=== PATIENT | male | born 1965 | race Caucasian/White ===

== ENCOUNTER → 2019-07-27 | Outpatient (CLI) | payer OTHER ==
[2019-07-27 16:03] LABS: FREE T4 (FREE THYROXINE) 0.97 NG/DL (0.70-1.48)
== END ==
LOC: LAB FS 10:19
PROVIDERS: ATTEND Family Medicine
DX: Z12.5 Encounter for screening for malignant neoplasm of prostate (principal); R00.2 Palpitations
CPT/HCPCS: 36415; 84153; 84439; 84443

== ENCOUNTER → 2019-08-18 | Outpatient (CLI) | payer OTHER ==
[~2019-08-18] MED LIST: ACET-2267 PO; ALBU18HF2 PO; ALBU2.5V4 NEB; BENZ-36 PO; EMPA10TA PO; IBUP-2473 PO; INSU100I14 SC; INSU200I4 SC; INSU300I; LEVO750T39 PO; LISI-556 PO; PROM5SYR PO; SITA1TBM4 PO; TIMO5DRO27; TIMO5DRO5 OU
--- NOTE | 2019-08-18 10:30 | Diagnostic Imaging Report ---
INDICATION: Fever, cough and shortness of breath. Time of exam 10:00 a.m. No prior studies are available for comparison. The heart is enlarged. There are patchy bilateral pulmonary infiltrates in the mid and lower lung mcfadden. No effusion is identified. Upper lung mcfadden are clear. IMPRESSION: Patchy bilateral pulmonary infiltrates consistent with pneumonia. Dictated by: Dictated on workstation # [id number]
== END ==
LOC: RAD FS 09:14
PROVIDERS: ATTEND Family Medicine
DX: R06.02 Shortness of breath (principal); R05 Cough; R50.9 Fever, unspecified
CPT/HCPCS: 36415; 71046; 87635

== ENCOUNTER 2019-08-19 09:00 | Inpatient (IN) | payer OTHER ==
[2019-08-19] VITALS (12 sets, daily range): BP systolic 117–150; BP diastolic 70–82
[~2019-08-19] VITALS: Ht 183 cm; Wt 98.7 kg
--- OUTSIDE RECORDS SUMMARY | 2019-08-19 09:11 | XMS REPORT | Continuity of Care Document ---
Author Organization Unknown Address Unknown Phone Unavailable Allergies There is no data. Medications There is no data. Problems Date Dx Coded Attending Type Code Diagnosis Diagnosed By 08/18/2019 YARY VALDEZ MD Ot R00 .2 PALPITATIONS 08/18/2019 YARY VALDEZ MD Ot Z12 .5 ENCOUNTER FOR SCREENING FOR MALIGNANT NE Procedures There is no data. Results Test Result Range TSH - 03/04/19 07:59 TSH 6.17 mIU/L 0.40-4.50 A1C - 03/04/19 07:59 HEMOGLOBIN A1c 8.2 % of total Hgb <5.7 THYROID STIMULATING HORMONE - 07/27/19 1 0:30 THYROID STIMULATING HORMONE 2.27 u[iU]/mL 0.35-4.94 Serum or plasma thyroxine (T4) free madisyn urement (mass/volume) - 07/27/19 10:30 Serum or plasma thyroxine (T4) free measurement (mass/ volume) 0.97 ng/dL 0.70-1.48 Semen free prostate specific antigen (PS A) measurement (units/volume) - 07/27/19 10:30 PSA EQUIMOLAR (JONNY) 0.24 % 0.00-4.0 0 Encounters ACCT No. Visit Date/Time Discharge Status Pt. Type Provider Facility Loc./Unit Complaint [id number] 06/08/2019 12:10:00 06/08/2019 23:59: 59 CLS Outpatient [facility] [id number] 03/04/2019 08:00:00 Document Registration [id number] 07/27/2019 10:19:00 020 23:59:59 CLS Outpatient YARY VALDEZ MD [facility] LAB FS R00.2 Z12.5 [id number] 08/18/2019 09:14:[address] Outpatient YARY VALDEZ MD [facility] RAD FS R05
[2019-08-19] MEDS ORDERED: PROM5SYR PO (09:25)
[2019-08-19] MEDS ORDERED: INSU100I14 SC (09:25)
[2019-08-19] MEDS ORDERED: SITA1TBM4 PO (09:25)
[2019-08-19] MEDS ORDERED: ALBU2.5V4 NEB (09:25)
[2019-08-19] MEDS ORDERED: BENZ-36 PO (09:25)
[2019-08-19] MEDS ORDERED: INSU300I (09:25)
[2019-08-19] MEDS ORDERED: LISI-556 PO (09:25)
[2019-08-19] MEDS ORDERED: LEVO750T39 PO (09:25)
[2019-08-19] MEDS ORDERED: EMPA10TA PO (09:25)
[2019-08-19] MEDS ORDERED: TIMO5DRO27 (09:25)
--- NOTE | 2019-08-19 09:35 | ED Respiratory ---
General Chief Complaint: Respiratory Problems Stated Complaint: COUGH Nursing Triage Note: Patient reports having fever, severe cough and soa, and inability to take in a deep breath. Patient states he recently traveled to [facility] on August 02. On the way there he traveled from the airports in [place] to [place](for 4 hours), to [place] (for 8 hours, took taxi to [facility], [place]), to [facility]. He went to [facility] during the trip. ON the he left and flew to [facility] with an 8 hour layover then to [facility] for 3 hours, then to [place]. Patient reports the highest his fever has been is 101.6 degrees. Patient reports that he has lost 7 pounds in the 2 weeks Source: patient Exam Limitations: clinical condition History of Present Illness Date Seen by Provider: Aug 19, 2019 Time Seen by Provider: 09:20 Initial Comments The patient is a 54-year-old male who presents for evaluation of fever, cough, and shortness of breath over the last 5-6 days. The patient recently traveled to [facility] on August 02. He states that on the way there he visited airports in [place], [place], [place], and [place]. They left [facility] on August 12 and flew through [facility] and [place] on the way back home. He says he is having difficulty taking a deep breath and has pain in his back. He has had a fever of 101.6 at home. He was seen here in the emergency department and was swabs for COVID-19 in his test results are being run today but has not yet resulted. His chest x-ray yesterday showed diffuse infiltrates. None of the other people he traveled with are having symptoms but they are all currently self-quarantining. He used an albuterol inhaler at home which helped slightly. Timing/Duration: getting worse, other (5-6 days) Severity: moderate Prior Episodes/Possible Cause: no prior episodes Modifying Factors: Improves With Albuterol Inhaler (helped a little) Associated Symptoms: cough, fever/chills, shortness of breath Allergies and Home Medications Allergies Coded Allergies: cefazolin (Verified Allergy, Unknown, 08/19/19) droperidol (Verified Allergy, Unknown, 08/19/19) morphine (Verified Allergy, Unknown, 08/19/19) hypotension nalbuphine (Verified Allergy, Unknown, 08/19/19) Patient Home Medication List Home Medication List Reviewed: Yes Review of Systems Review of Systems Constitutional: chills, fever, malaise EENTM: no symptoms reported Respiratory: cough, short of breath Cardiovascular: no symptoms reported Gastrointestinal: no symptoms reported Genitourinary: no symptoms reported Musculoskeletal: no symptoms reported Skin: no symptoms reported Psychiatric/Neurological: No Symptoms Reported Hematologic/Lymphatic: No Symptoms Reported Immunological/Allergic: no symptoms reported All Other Systems Reviewed Negative Unless Noted: Yes Past Zsxouhw-Dvuuab-Cztaqx Hx Past Med/Social Hx: Reviewed Nursing Past Med/Soc Hx Patient Social History Alcohol Use: Denies Use Recreational Drug Use: No Recent Foreign Travel: No Contact w/Someone Who Travel: No Recent Infectious Disease Expo: No Past Medical History Surgeries: Yes (R & L rotator cuff) Orthopedic Respiratory: No Cardiac: Yes Hypertension Neurological: No Genitourinary: No Gastrointestinal: No Musculoskeletal: No Endocrine: Yes Diabetes, Insulin dep HEENT: No Cancer: No Integumentary: No Physical Exam Vital Signs - First Documented 08/19/19 08/19/19 09:10 10:19 Temp 37.2 Pulse 63 Resp 22 B/P (MAP) 151/86 (107) Pulse Ox 97 O2 Delivery Room Air O2 Flow Rate 2.00 Capillary Refill : Less Than 3 Seconds Height: '" Weight: lbs. oz. kg; 28.00 BMI Method: General Appearance: WD/WN Eyes: Bilateral Eye Normal Inspection, Bilateral Eye PERRL, Bilateral Eye EOMI HEENT: PERRL/EOMI, normal ENT inspection Neck: non-tender, full range of motion, supple, normal inspection Respiratory: chest non-tender, normal breath sounds, no accessory muscle use, respiratory distress (mild resp distress), decreased breath sounds, rhonchi Cardiovascular: regular rate, rhythm, no edema Gastrointestinal: normal bowel sounds, non tender, soft Extremities: normal range of motion, non-tender, no pedal edema Neurologic/Psychiatric: security supervisor II-XII nml as tested, no motor/sensory deficits, alert, normal mood/affect, oriented x 3 Skin: normal color, warm/dry Focused Exam Lactate Level 08/19/19 09:35: Lactic Acid Level 1.01 Lactic Acid Level Laboratory Tests Test 08/19/19 09:35 Lactic Acid Level 1.01 MMOL/L (0.50-2.00) Progress/Results/Core Measures Suspected Sepsis Recent Fever Within 48 Hours: Yes Infection Criteria Present: Documented Infection New/Unexplained Altered Menta: No Sepsis Screen: Possible Severe Sepsis Risk SIRS Temperature: Pulse: 63 Respiratory Rate: 22 Laboratory Tests 08/19/19 09:35: White Blood Count 6.0 Blood Pressure 151 /86 Mean: 107 08/19/19 09:35: Lactic Acid Level 1.01 Laboratory Tests 08/19/19 09:35: Creatinine 0.65, Platelet Count 174, Total Bilirubin 0.3 Results/Orders Lab Results Laboratory Tests Test 08/19/19 09:35 08/19/19 10:10 Range/Units White Blood Count 6.0 4.3-11.0 10^3/uL Red Blood Count 5.47 4.35-5.85 10^6/uL Hemoglobin 14.9 13.3-17.7 G/DL Hematocrit 44 40-54 % Mean Corpuscular Volume 81 80-99 FL Mean Corpuscular Hemoglobin 27 25-34 PG Mean Corpuscular Hemoglobin Concent 34 32-36 G/DL Red Cell Distribution Width 13.9 10.0-14.5 % Platelet Count 174 130-400 10^3/uL Mean Platelet Volume 10.1 7.4-10.4 FL Neutrophils (%) (Auto) 59 42-75 % Lymphocytes (%) (Auto) 34 12-44 % Monocytes (%) (Auto) 6 0-12 % Eosinophils (%) (Auto) 1 0-10 % Basophils (%) (Auto) 0 0-10 % Neutrophils # (Auto) 3.6 1.8-7.8 X 10^3 Lymphocytes # (Auto) 2.1 1.0-4.0 X 10^3 Monocytes # (Auto) 0.4 0.0-1.0 X 10^3 Eosinophils # (Auto) 0.0 0.0-0.3 10^3/uL Basophils # (Auto) 0.0 0.0-0.1 10^3/uL Sodium Level 138 135-145 MMOL/L Potassium Level 4.6 3.6-5.0 MMOL/L Chloride Level 101 98-107 MMOL/L Carbon Dioxide Level 21 21-32 MMOL/L Anion Gap 16 H 5-14 MMOL/L Blood Urea Nitrogen 12 7-18 MG/DL Creatinine 0.65 0.60-1.30 MG/DL Estimat Glomerular Filtration Rate > 60 BUN/Creatinine Ratio 18 Glucose Level 101 70-105 MG/DL Lactic Acid Level 1.01 0.50-2.00 MMOL/L Calcium Level 9.2 8.5-10.1 MG/DL Corrected Calcium 9.4 8.5-10.1 MG/DL Total Bilirubin 0.3 0.1-1.0 MG/DL Aspartate Amino Transf (AST/SGOT) 51 H 5-34 U/L Alanine Aminotransferase (ALT/SGPT) 36 0-55 U/L Alkaline Phosphatase 52 40-136 U/L Total Protein 7.5 6.4-8.2 GM/DL Albumin 3.8 3.2-4.5 GM/DL My Orders Orders - JUSTICE PATTERSON DO Cbc With Automated Diff (08/19/19 09:08) Comprehensive Metabolic Panel (08/19/19 09:08) Ed Iv/Invasive Line Start (08/19/19 09:08) Chest 1 View Ap/Pa Only (08/19/19 09:08) Blood Culture (08/19/19 09:08) Lactic Acid Analyzer (08/19/19 09:08) Project Drilling Engineer (08/19/19 09:08) Continuous Pulse Ox (08/19/19 09:08) Levofloxacin 750 Mg/150 Ml Iv (Levaquin (08/19/19 10:00) Blood Culture (08/19/19 09:45) Arterial Blood Gas (08/19/19 10:14) Erythrocyte Sedimentation Rate (08/19/19 10:27) Medications Given in ED Current Medications Medications Dose Ordered Sig/Roxana Route Start Time Stop Time Status Last Admin Dose Admin Levofloxacin/ Dextrose 150 ml @ 100 mls/hr ONCE ONCE IV 08/19/19 10:00 08/19/19 11:29 08/19/19 10:14 100 MLS/HR Vital Signs/I&O 08/19/19 08/19/19 09:10 10:19 Temp 37.2 Pulse 63 61 Resp 22 24 B/P (MAP) 151/86 (107) 147/73 (97) Pulse Ox 97 99 O2 Delivery Room Air OxyMask O2 Flow Rate 2.00 Capillary Refill : Less Than 3 Seconds Blood Pressure Mean: 107 Progress Note : Progress Note @1030 - patient updated on lab and imaging results. He is agreeable to admission. Dr. Gama accepts the admission to an ICU bed at [facility]. Diagnostic Imaging Diagonstic Imaging: Xray Comments [facility], [place], [place] NAME: PIYUSH [facility]USSEIN [facility] REC#: [id number] PT STATUS: REG ER : 1965 PHYSICIAN: JUSTICE PATTERSON DO ADMIT DATE: 08/19/19/ER FS Draft Date of Exam:08/19/19 CHEST 1 VIEW AP/PA ONLY INDICATION: Cough and fever with dyspnea. AP view of the chest is obtained with comparison made to study of one day earlier. Overall heart size remains within normal limits. There is suboptimal inspiration which does lead to perihilar atelectasis. The predominantly peripheral airspace disease in the lower two thirds of the left lung and the focal airspace disease in the central right lung have not significantly changed. No pneumothorax or new infiltrate is identified. IMPRESSION: Bilateral focal airspace opacities remain compatible with pneumonia. There has been no significant change. Dictated on workstation # [id number] Dict: 08/19/19 0940 Trans: 08/19/19 0944 [facility] [id number] Interpreted by: LAURIE TOM MD Electronically signed by: Departure Communication (Admissions) Time/Spoke to Admitting Phy: 10:35 Dr. Gama accepts the ICU admission at [facility] Impression Primary Impression: Acute respiratory distress Additional Impressions: Bilateral pneumonia Foreign travel within last 10 days Disposition: ADMITTED INPATIENT Condition: Stable Admissions Decision to Admit Reason: Admit from ER (General) Decision to Admit/Date: Aug 19, 2019 Time/Decision to Admit Time: 10:40 Departure-Patient Inst. Referrals: YARY VALDEZ MD (PCP/Family) Primary Care Physician JUSTICE PATTERSON DO Aug 19, 2019 09:35
--- NOTE | 2019-08-19 09:44 | Diagnostic Imaging Report ---
INDICATION: Cough and fever with dyspnea. AP view of the chest is obtained with comparison made to study of one day earlier. Overall heart size remains within normal limits. There is suboptimal inspiration which does lead to perihilar atelectasis. The predominantly peripheral airspace disease in the lower two thirds of the left lung and the focal airspace disease in the central right lung have not significantly changed. No pneumothorax or new infiltrate is identified. IMPRESSION: Bilateral focal airspace opacities remain compatible with pneumonia. There has been no significant change. Dictated by: Dictated on workstation # [id number]
[2019-08-19 09:47] LABS: HEMATOCRIT 44 % (40-54); HEMOGLOBIN 14.9 G/DL (13.3-17.7); LYMPHOCYTES % (AUTO) 34 % (12-44); MEAN CORPUSCULAR HEMOGLOBIN 27 PG (25-34); MEAN CORPUSCULAR HGB CONC 34 G/DL (32-36); MEAN CORPUSCULAR VOLUME 81 FL (80-99); MEAN PLATELET VOLUME 10.1 FL (7.4-10.4); MONOCYTES % (AUTO) 6 % (0-12); NEUTROPHILS % (AUTO) 59 % (42-75); PLATELET COUNT 174 10^3/uL (130-400); RED CELL DISTRIBUTION WIDTH 13.9 % (10.0-14.5)
[2019-08-19 09:48] LABS: BASOPHILS % (AUTO) 0 % (0-10); EOSINOPHILS % (AUTO) 1 % (0-10); LYMPHOCYTES # (AUTO) 2.1 X 10^3 (1.0-4.0); MONOCYTES # (AUTO) 0.4 X 10^3 (0.0-1.0); NEUTROPHILS # (AUTO) 3.6 X 10^3 (1.8-7.8)
[2019-08-19] MEDS ORDERED: LEVOFLOXACIN 750 MG/150 ML IV 150 ML IV ONE (10:00)
[2019-08-19 10:07] LABS: CHLORIDE 101 MMOL/L (98-107); POTASSIUM 4.6 MMOL/L (3.6-5.0); SODIUM 138 MMOL/L (135-145)
[2019-08-19 10:08] LABS: ALANINE AMINOTRANSFERASE 36 U/L (0-55); ALKALINE PHOSPHATASE 52 U/L (40-136); BILIRUBIN,TOTAL 0.3 MG/DL (0.1-1.0); BUN/CREATININE RATIO 18; CALCIUM 9.2 MG/DL (8.5-10.1); CARBON DIOXIDE 21 MMOL/L (21-32); CREATININE SERUM 0.65 MG/DL (0.60-1.30); GFR ESTIMATED > 60; GLUCOSE 101 MG/DL (70-105); TOTAL PROTEIN 7.5 GM/DL (6.4-8.2)
[2019-08-19 10:09] LABS: ALBUMIN 3.8 GM/DL (3.2-4.5)
[2019-08-19 11:18] LABS: ABG BASE EXCESS -1.8 MMOL/L (-2.5-2.5); ABG OXYGEN SATURATION 97 % (94-100); ABG PCO2 33 MMHG (35-45); ABG PH 7.43 (7.37-7.43); ABG PO2 89 MMHG (79-93); ABG TCO2 22.9 MMOL/L (21.0-31.0)
[2019-08-19 11:19] LABS: ALLENS TEST OK; INSPIRED O2 4L; VENTILATOR NO
--- OUTSIDE RECORDS SUMMARY | 2019-08-19 13:50 | XMS REPORT | Continuity of Care Document ---
[...] PSA EQUIMOLAR (JONNY) 0.24 % 0.00-4.0 0 Complete blood count (CBC) with automate d white blood cell (WBC) differential - 08/19/19 09:35 Blood leukocytes automated count (number/volume) 6.0 10*3/uL 4.3-11.0 Blood erythrocytes automated count (number/volume) 5.47 10*6/uL 4.35-5.85 Venous blood hemoglobin measurement (mass/volume) 14.9 g/dL 13.3-17.7 Blood hematocrit (volume fraction) 44 % 40-54 Automated erythrocyte mean corpuscular volume 81 [ foz_us] 80-99 Automated erythrocyte mean corpuscular h emoglobin (mass per erythrocyte) 27 pg 25-34 Automated erythrocyte mean corpuscular h emoglobin concentration measurement (mass/volume) 34 g/dL 32-36 Automated erythrocyte distribution width ratio 13. 9 % 10.0- 14.5 Automated blood platelet count (count/volume) 174 10*3/uL 130-400 Automated blood platelet mean volume measurement 10.1 [foz_us] 7.4-10.4 Automated blood neutrophils/100 leukocytes 59 % 42-75 Automated blood lymphocytes/100 leukocytes 34 % 12-44 Blood monocytes/100 leukocytes 6 % 0-12 Automated blood eosinophils/100 leukocytes 1 % 0-10 Automated blood basophils/100 leukocytes 0 % 0-10 Blood neutrophils automated count (number/volume) 3.6 10*3 1.8-7.8 Blood lymphocytes automated count (number/volume) 2.1 10*3 1.0-4.0 Blood monocytes automated count (number/volume) 0. 4 10*3 0.0-1.0 Automated eosinophil count 0.0 10*3/uL 0 .0-0.3 Automated blood basophil count (count/volume) 0.0 10*3/uL 0.0-0.1 Blood lactic acid measurement (moles/vol ume) - 08/19/19 09:35 Blood lactic acid measurement (moles/volume) 1.01 mmol/L 0.50-2.00 Comprehensive metabolic panel - 08/19/19 09:35 Serum or plasma sodium measurement (moles/volume) 138 mmol/L 135-145 Serum or plasma potassium measurement (moles/volume) 4.6 mmol/L 3.6-5.0 Serum or plasma chloride measurement (moles/volume) 101 mmol/L 98-107 Carbon dioxide 21 mmol/L 21-32 Serum or plasma anion gap determination (moles/volume) 16 mmol/L 5-14 Serum or plasma urea nitrogen measurement (mass/volume ) 12 mg/dL 7-18 Serum or plasma creatinine measurement (mass/volume) 0.65 mg/dL 0.60-1.30 Serum or plasma urea nitrogen/creatinine mass ratio 18 NRG Serum or plasma creatinine measurement w ith calculation of estimated glomerular filtration rate > NRG Serum or plasma glucose measurement (mass/volume) 101 mg/dL 70-105 Serum or plasma calcium measurement (mass/volume) 9.2 mg/dL 8.5-10.1 Serum or plasma total bilirubin measurement (mass/volu me) 0.3 mg/dL 0.1-1.0 Serum or plasma alkaline phosphatase ernesto surement (enzymatic activity/volume) 52 U/L 40-136 Serum or plasma aspartate aminotransfera se measurement (enzymatic activity/volume) 51 U/L 5-34 Serum or plasma alanine aminotransferase measurement (enzymatic activity/volume) 36 U/L 0-55 Serum or plasma protein measurement (mass/volume) 7.5 g/dL 6.4-8.2 Serum or plasma albumin measurement (mass/volume) 3.8 g/dL 3.2-4.5 CALCIUM CORRECTED 9.4 mg/dL 8.5-10.1 Erythrocyte sedimentation rate by mindy gren method - 08/19/19 09:35 Erythrocyte sedimentation rate by westergren method 39 mm 0- 30 Arterial blood gas measurement - 0 11:10 Blood pCO2 33 mm[Hg] 35-45 Blood pO2 89 mm[Hg] 79-93 Arterial blood bicarbonate measurement (moles/volume) 22 mmol/L 23-27 Arterial blood base excess by calculation -1.8 mmo l/L -2.5-2.5 Arterial blood oxygen saturation measurement 97 % 94-100 * Inhaled oxygen flow rate 4L NRG Arterial blood pH measurement with patient temperature correction 7.43 7.37-7.43 Arterial blood carbon dioxide, total measurement (mole s/volume) 22.9 mmol/L 21.0-31.0 Body site RT RADIAL NRG Assessment of wrist artery patency prior to arterial p uncture OK NRG Setting of ventilation mode NO NR G Measurement of body temperature 99.0 NRG Encounters ACCT No. Visit Date/Time Discharge Status Pt. Type Provider Facility Loc./Unit Complaint [id number] 06/08/2019 12:10:00 06/08/2019 23:59: 59 CLS Outpatient YARY VALDEZ [facility] [id number] 03/04/2019 08:00:00 Document Registration [id number] 07/27/2019 10:19:00 020 23:59:59 CLS Outpatient YARY VALDEZ MD [facility] LAB FS R00.2 Z12.5 [id number] 08/19/2019 09:49:00 Document Registration [id number] 08/18/2019 09:14:[address] Outpatient YARY VALDEZ MD [facility] RAD FS R08
[2019-08-19] MEDS ORDERED: ONDANSETRON 4 MG/2 ML (SDV) Z0FRAN IV PRN (14:00)
[2019-08-19] MEDS ORDERED: ANTACID SUSP 30 ML UDC (MYLANTA) PO PRN (14:00)
[2019-08-19] MEDS ORDERED: polyethylene glycoL POWDER 17 GM (MIRALAX) PACK PO PRN (14:00)
[2019-08-19] MEDS ORDERED: MELATONIN 3 MG TABLET PO PRN (14:00)
--- NOTE | 2019-08-19 14:19 | History & Physical-Hospitalist ---
History of Present Illness HPI/Chief Complaint Pt is a 54yoCM with a PMH IDDMII, HTN, and chronotropic incompetence presented to the ER due to SOB, cough, and fever after travel to multiple foreign countries. He recently was on a medical mission trip in [place]. On August 02. He states that on the way there he visited airports in [place], [place], [place], and [place]. They left [facility] on August 12 and flew through [facility] and [place] on the way back home. He developed a fever this Friday on 08/14. Yesterday he called his PCP regarding his symptoms and COVID testing as down. CXR was also done which revealed bilateral pneumonia. He was started on Levaquin. Despite this he continued to worsen and called his doctor who recommended evaluation in the ER. CXR today shows similar but he had a new oxygen requirement and was quite tachypneic. He is being admitted for acute respiratory distress and COVID testing is pending at the time of my exam. As a precaution airborne, contact, and droplet isolation PPE were worn during my interview. Source: patient Date Seen 08/19/19 Time Seen by a Provider: 14:14 Attending Physician Zaira Connelly MD PCP Leandra Dunaway MD Referring Physician Date of Admission Aug 19, 2019 at 11:26 Home Medications & Allergies Home Medications Reviewed patient Home Medication Reconciliation performed by pharmacy medication reconciliations household appliances service technician and/or nursing. Patients Allergies have been reviewed. Allergies Allergies Coded Allergies cefazolin (Verified Allergy, Unknown, 08/19/19) droperidol (Verified Allergy, Unknown, 08/19/19) morphine (Verified Allergy, Unknown, 08/19/19) hypotension nalbuphine (Verified Allergy, Unknown, 08/19/19) Past Zpzoorv-Bkbjfw-Zvtqxx Hx Past Med/Social Hx: Reviewed Nursing Past Med/Soc Hx Patient Social History Marrital Status: Employed/Student: employed Alcohol Use: Denies Use Recreational Drug Use: No Smoking Status: Never a Smoker Recent Foreign Travel: No Contact w/other who traveled: No Recent Infectious Disease Expo: No Immunizations Up To Date Date of Pneumonia Vaccine: Mar 26, 2019 Date of Influenza Vaccine: Feb 23, 2019 Past Medical History Surgeries: Orthopedic Cardiac: Hypertension Endocrine: Diabetes, Insulin dep Family History Reviewed Nursing Family Hx Review of Systems Constitutional: chills, fever, malaise EENTM: no symptoms reported Respiratory: cough, dyspnea on exertion, short of breath Cardiovascular: No chest pain, No palpitations Gastrointestinal: no symptoms reported Genitourinary: no symptoms reported Musculoskeletal: no symptoms reported Skin: no symptoms reported Psychiatric/Neurological: No Symptoms Reported Physical Exam Physical Exam Vital Signs Vital Signs - First Documented 08/19/19 08/19/19 08/19/19 09:10 10:19 17:22 Temp 37.2 Pulse 63 Resp 22 B/P (MAP) 151/86 (107) Pulse Ox 97 O2 Delivery Room Air O2 Flow Rate 2.00 FiO2 40 Capillary Refill : Less Than 3 Seconds Height, Weight, BMI Height: '" Weight: lbs. oz. kg; 28.00 BMI Method: General Appearance: WD/WN, Mild Distress (ill appearing, fatigued) HEENT: PERRL/EOMI; No Scleral Icterus (L), No Scleral Icterus (R); Other (obscured somewhat by oxi-mask in place) Neck: Normal Inspection, Supple Respiratory: Crackles, Other (tachypnea noted) Cardiovascular: Regular Rate, Rhythm, No Murmur Gastrointestinal: Normal Bowel Sounds, Non Tender, Soft Extremity: Normal Capillary Refill, No Calf Tenderness Neurologic/Psychiatric: Alert, Oriented x3, Normal Mood/Affect Results Results/Procedures Labs Laboratory Tests 08/19/19 09:35 Patient resulted labs reviewed. Imaging: Reviewed Imaging Report Imaging Date of Exam:08/19/19 CHEST 1 VIEW AP/PA ONLY INDICATION: Cough and fever with dyspnea. AP view of the chest is obtained with comparison made to study of one day earlier. Overall heart size remains within normal limits. There is suboptimal inspiration which does lead to perihilar atelectasis. The predominantly peripheral airspace disease in the lower two thirds of the left lung and the focal airspace disease in the central right lung have not significantly changed. No pneumothorax or new infiltrate is identified. IMPRESSION: Bilateral focal airspace opacities remain compatible with pneumonia. There has been no significant change. Assessment/Plan Admission Diagnosis Acute Respiratory Distress Admission Status: Inpatient Order (span 2 midnights) Reason for Inpatient Admission: on oxygen, failed outpatient management Assessment and Plan Acute Respiratory Distress COVID19 Bilateral pneumonia Shortly after examining pt I received called that testing for Sars-Cov2 PCR is positive Maintain in airborne, contact, droplet isolation Will obtain further labs (CRP, procalcitonin, ferritin, CRP, d-dimer, LDH) EKG to check QTC Hydroxychloroquine and Azithromycin started I spoke with [facility] regarding patient, appreciate their assistance in management IDDMII Normally takes Tresiba but has not taken for 3 days, reports fasting BS this AM was 97 SSI only for now HTN Currently well controlled, will trend Diagnosis/Problems Diagnosis/Problems (1) SARS-associated coronavirus infection Permanent Comment: COVID19 + Last Edited By: Zaira Connelly on Aug 19, 2019 21:04 (2) Essential (primary) hypertension (3) Insulin dependent diabetes mellitus (4) Acute respiratory distress Status: Acute (5) Foreign travel within last 10 days Status: Acute (6) Bilateral pneumonia Status: Acute Clinical Quality Measures DVT/VTE Risk/Contraindication: Risk Factor Score Per Nursin RFS Level Per Nursing on Admit: 2=Moderate ZAIRA CONNELLY MD Aug 19, 2019 14:19
[2019-08-19] MEDS: AZITHROMYCIN INJECTION 500 MG in NS (IVPB) 250 ML IV SCH (15:35)
[2019-08-19] MEDS: inSUlin ASPART (NovoLOG) 1 UNIT/0.01 ML (CHARGE PER UNIT) SC SCH ×2 (15:35→21:01)
[2019-08-19] MEDS: HYDROXYCHLOROQUINE 200 MG (PLAQUENIL) TAB PO SCH (15:36)
--- NOTE | 2019-08-19 16:40 | NUR ---
THIS NURSE NOTIFIED DR CONNELLY PT IS SOA AND GRUNTING. PT OXYGEN SATURATIONS ARE 96-98%. PT STATES HE FEELS LIKE HE IS HAVING A HARD TIME BREATHING. DR CONNELLY ORDERED TO NOTIFY E-ICU.
--- NOTE | 2019-08-19 16:43 | NUR ---
THIS NURSE NOTIFIED DR CLARK THAT PT IS SOA AND GRUNTING. PT OXYGEN SATURATIONS ARE 96-98%. PT STATES HE IS HAVING A HARD TIME BREATHING. DR CALRK SAID SHE WILL ORDER A PRN INHALER AND TO MONITOR FOR NOW SINCE PT OXYGEN SATURATIONS ARE NORMAL.
--- NOTE | 2019-08-19 16:53 | NUR ---
DR CLARK NOTIFIED PT IS HAVING DIFFICULTY COUGHING WELL SOA. DR CLARK DOES NO BELIEVE VAPOTHERM WILL HELP PT SINCE OXYGEN SATURATIONS ARE IN HIGH 90S. WILL CONTINUE TO MONITOR. SEE ORDER HX.
[2019-08-19] MEDS: RT-ALBUTEROL HFA (PROAIR HFA) 8.5 GM IH PRN (17:22)
[2019-08-19] MEDS: guaiFENesin/DM (ROBITUSSIN DM) 10 ML UDC PO PRN (18:08)
[2019-08-20] VITALS (24 sets, daily range): BP systolic 109–156; BP diastolic 67–92
[2019-08-20] MEDS: RT-ALBUTEROL HFA (PROAIR HFA) 8.5 GM IH PRN ×2 (00:10→17:23)
[2019-08-20] MEDS: HYDROXYCHLOROQUINE 200 MG (PLAQUENIL) TAB PO SCH ×2 (03:20→21:28)
[2019-08-20] MEDS: ACETAMINOPHEN 325 MG TABLET PO PRN ×2 (03:32→11:15)
[2019-08-20 03:50] LABS: BASOPHILS % (AUTO) 0 % (0-10); EOSINOPHILS % (AUTO) 1 % (0-10); HEMATOCRIT 40 % (40-54); HEMOGLOBIN 13.9 G/DL (13.3-17.7); LYMPHOCYTES # (AUTO) 1.9 X 10^3 (1.0-4.0); LYMPHOCYTES % (AUTO) 38 % (12-44); MEAN CORPUSCULAR HEMOGLOBIN 28 PG (25-34); MEAN CORPUSCULAR HGB CONC 35 G/DL (32-36); MEAN CORPUSCULAR VOLUME 80 FL (80-99); MONOCYTES # (AUTO) 0.4 X 10^3 (0.0-1.0); MONOCYTES % (AUTO) 8 % (0-12); NEUTROPHILS # (AUTO) 2.6 X 10^3 (1.8-7.8); NEUTROPHILS % (AUTO) 53 % (42-75); PLATELET COUNT 164 10^3/uL (130-400); RED CELL DISTRIBUTION WIDTH 14.7 % (10.0-14.5)
[2019-08-20 04:10] LABS: ALANINE AMINOTRANSFERASE 38 U/L (0-55); ALBUMIN 3.8 GM/DL (3.2-4.5); ALKALINE PHOSPHATASE 48 U/L (40-136); BILIRUBIN,TOTAL 0.3 MG/DL (0.1-1.0); BUN/CREATININE RATIO 13; CALCIUM 8.8 MG/DL (8.5-10.1); CARBON DIOXIDE 21 MMOL/L (21-32); CHLORIDE 104 MMOL/L (98-107); CREATININE SERUM 0.82 MG/DL (0.60-1.30); GFR ESTIMATED > 60; GLUCOSE 105 MG/DL (70-105); MAGNESIUM 1.9 MG/DL (1.6-2.4); PHOSPHORUS 3.5 MG/DL (2.3-4.7); POTASSIUM 4.1 MMOL/L (3.6-5.0); SODIUM 138 MMOL/L (135-145); TOTAL PROTEIN 6.8 GM/DL (6.4-8.2)
[2019-08-20 04:12] LABS: PROTHROMBIN TIME PATIENT 13.6 SEC (12.2-14.7)
[2019-08-20] MEDS: POTASSIUM CL 10MEQ/50ML IVPB 50 ML IV SCH (06:47)
[2019-08-20] MEDS: MAGNESIUM 1 GM/100 ML IVPB 100 ML IV SCH (06:47)
[2019-08-20] MEDS: KCL 20 MEQ TAB (K-DUR) PO SCH (06:47)
[2019-08-20] MEDS: inSUlin ASPART (NovoLOG) 1 UNIT/0.01 ML (CHARGE PER UNIT) SC SCH ×4 (06:48→21:28)
--- NOTE | 2019-08-20 07:13 | Diagnostic Imaging Report ---
INDICATION: Pneumonia. Comparison made with prior examination of 08/19/2019 FINDINGS: There is cardiomegaly. There is some venous congestion. There is right basilar infiltrate. No pleural effusion or pneumothorax. Mediastinum is unremarkable. IMPRESSION: Persistent right basilar infiltrate. Cardiomegaly and simple venous congestion. Dictated by: Dictated on workstation # [id number]
[2019-08-20] MEDS ORDERED: AZITHROMYCIN INJECTION 250 MG in NS (IVPB) 250 ML IV SCH (09:00)
[2019-08-20] MEDS: guaiFENesin/DM (ROBITUSSIN DM) 10 ML UDC PO PRN ×3 (09:52→22:21)
[2019-08-20] MEDS: AZITHROMYCIN INJECTION 500 MG in NS (IVPB) 250 ML IV SCH (09:52)
[2019-08-20] MEDS ORDERED: ALBU18HF2 PO (10:45)
[2019-08-20] MEDS ORDERED: INSU200I4 SC (10:45)
[2019-08-20] MEDS ORDERED: TIMO5DRO5 OU (10:45)
[2019-08-20] MEDS ORDERED: IBUP-2473 PO (10:47)
[2019-08-20] MEDS ORDERED: ACET-2267 PO (10:47)
--- NOTE | 2019-08-20 10:48 | NUR ---
CALLED THE PTS CELL TO TALK WITH HIM ABOUT HIS MEDICATIONS- HE THOUGHT IT WOULD BE BEST TO CALL HIS GERMAN TO GET THE INFORMATION. I SPOKE WITH HIS AND WENT THRU THE EXT MED HISTORY TO COMPLETE THE MED REC. TRESIBA- HE IS CURRENTLY USING TRESIBA FLEXPEN AND HAD USED THIS ALL LAST YEAR(IT IS SHOWN ON THE EXT MED HISTORY FROM NOVEMBER 2018), THE EXT MED HISTORY SHOWS THE MOST RECENT FILL IS TOUJEO FLEXPEN. SHMUEL INDICATED THAT STARTING IN 2019 THE INSURANCE WAS NOT COVERING TRESIBA AND HE WAS SWITCHED TO TOUJEO- HE STILL HAD A FEW PENS LEFT OF TRESIBA AND WANTED TO FINISH THOSE BEFORE HE STARTED THE NEW RX OF TOUJEO. OTC MEDS: TYLENOL IBUPROFEN
[2019-08-20] MEDS ORDERED: diphenhydrAMINE 25 MG TAB (BENADRYL) PO PRN (15:30)
[2019-08-20] MEDS ORDERED: BENZONATATE 100 MG (TESSALON) CAPSULE PO PRN (15:30)
[2019-08-20] MEDS ORDERED: ACETAMINOPHEN 500 MG TAB (TYLENOL) PO PRN (15:30)
--- NOTE | 2019-08-20 15:38 | Progress Note - Hospitalist ---
Subjective HPI/CC On Admission Date Seen by Provider: Aug 20, 2019 Time Seen by Provider: 15:29 Pt is a 54yoCM with a PMH IDDMII, HTN, and chronotropic incompetence presented to the ER due to SOB, cough, and fever after travel to multiple foreign countries. He recently was on a medical mission trip in [facility]. On August 02. He states that on the way there he visited airports in [place], [place], [place], and [place]. They left [facility] on August 12 and flew through [facility] and [place] on the way back home. He developed a fever this Friday on 08/14. Yesterday he called his PCP regarding his symptoms and COVID testing as down. CXR was also done which revealed bilateral pneumonia. He was started on Levaquin. Despite this he continued to worsen and called his doctor who recommended evaluation in the ER. CXR today shows similar but he had a new oxygen requirement and was quite tachypneic. He is being admitted for acute respiratory distress and COVID testing is pending at the time of my exam. As a precaution airborne, contact, and droplet isolation PPE were worn during my interview. Subjective/Events-last exam Pt reports feeling much better today. Breathing much improved. Currently on Vapotherm. Did not sleep well due to chronic back pain. Focused Exam Lactate Level 08/19/19 09:35: Lactic Acid Level 1.01 Objective Exam Vital Signs Vital Signs Date Time Temp Pulse Resp B/P (MAP) Pulse Ox O2 Delivery O2 Flow Rate FiO2 08/20/19 15:13 97 Vapotherm 25.00 30 08/20/19 15:00 56 30 127/77 (94) 08/20/19 12:15 35.7 Capillary Refill : Less Than 3 Seconds General Appearance: No Apparent Distress, WD/WN Respiratory: Lungs Clear, No Respiratory Distress Cardiovascular: Regular Rate, Rhythm, No Murmur Extremity: No Calf Tenderness, No Pedal Edema Neurologic/Psychiatric: Alert, Oriented x3, Normal Mood/Affect Results/Procedures Lab Laboratory Tests 08/20/19 03:30 Patient resulted labs reviewed. Imaging: Reviewed Imaging Report Assessment/Plan Assessment and Plan Assess & Plan/Chief Complaint Acute Respiratory Distress COVID19 Bilateral pneumonia Sars-Cov2 PCR is positive Maintain in airborne, contact, droplet isolation Telemetry Hydroxychloroquine and Azithromycin, otherwise symptomatic management On Vapotherm, I personally titrate rate down to 25lpm at 30% FiO2 and he tolerated this well I spoke with [facility] regarding patient, appreciate their assistance in management Spoke with regarding management via videocall today per 's request IDDMII Normally takes Tresiba but has not taken for 3 days Fasting BS 105 this AM, continue to hold tresiba SSI only for now HTN Currently well controlled, will trend Diagnosis/Problems Diagnosis/Problems (1) SARS-associated coronavirus infection Permanent Comment: COVID19 + Last Edited By: Zaira Gama on Aug 19, 2019 21:04 (2) Essential (primary) hypertension (3) Insulin dependent diabetes mellitus (4) Acute respiratory distress Status: Acute (5) Foreign travel within last 10 days Status: Acute (6) Bilateral pneumonia Status: Acute Clinical Quality Measures DVT/VTE Risk/Contraindication: Risk Factor Score Per Nursin RFS Level Per Nursing on Admit: 2=Moderate ZAIRA GAMA MD Aug 20, 2019 15:37
[2019-08-20] MEDS: MELATONIN 3 MG TABLET PO SCH (21:28)
[2019-08-20] MEDS: TIMOLOL MALEATE 0.5% 5 ML (TIMOPTIC) BTL OU SCH (21:28)
[2019-08-21] VITALS (23 sets, daily range): BP systolic 93–151; BP diastolic 52–89
[2019-08-21 01:54] LABS: BASOPHILS % (AUTO) 0 % (0-10); EOSINOPHILS # (AUTO) 0.1 10^3/uL (0.0-0.3); EOSINOPHILS % (AUTO) 1 % (0-10); HEMATOCRIT 38 % (40-54); HEMOGLOBIN 12.9 G/DL (13.3-17.7); LYMPHOCYTES % (AUTO) 36 % (12-44); MEAN CORPUSCULAR HEMOGLOBIN 27 PG (25-34); MEAN CORPUSCULAR HGB CONC 34 G/DL (32-36); MEAN CORPUSCULAR VOLUME 80 FL (80-99); MEAN PLATELET VOLUME 10.3 FL (7.4-10.4); MONOCYTES # (AUTO) 0.6 X 10^3 (0.0-1.0); MONOCYTES % (AUTO) 10 % (0-12); NEUTROPHILS % (AUTO) 53 % (42-75); PLATELET COUNT 173 10^3/uL (130-400); RED CELL DISTRIBUTION WIDTH 14.3 % (10.0-14.5); WHITE BLOOD COUNT 5.7 10^3/uL (4.3-11.0)
[2019-08-21 02:19] LABS: ALANINE AMINOTRANSFERASE 35 U/L (0-55); ALBUMIN 3.6 GM/DL (3.2-4.5); ALKALINE PHOSPHATASE 41 U/L (40-136); BILIRUBIN,TOTAL 0.4 MG/DL (0.1-1.0); BUN/CREATININE RATIO 11; CALCIUM 8.6 MG/DL (8.5-10.1); CARBON DIOXIDE 22 MMOL/L (21-32); CHLORIDE 105 MMOL/L (98-107); CREATININE SERUM 0.82 MG/DL (0.60-1.30); GFR ESTIMATED > 60; GLUCOSE 198 MG/DL (70-105); MAGNESIUM 1.8 MG/DL (1.6-2.4); PHOSPHORUS 3.3 MG/DL (2.3-4.7); POTASSIUM 4.1 MMOL/L (3.6-5.0); SODIUM 138 MMOL/L (135-145); TOTAL PROTEIN 6.5 GM/DL (6.4-8.2)
[2019-08-21] MEDS: guaiFENesin/DM (ROBITUSSIN DM) 10 ML UDC PO PRN ×4 (04:38→20:59)
[2019-08-21] MEDS: MAGNESIUM 1 GM/100 ML IVPB 100 ML IV SCH (06:05)
[2019-08-21] MEDS: POTASSIUM CL 10MEQ/50ML IVPB 50 ML IV SCH (06:05)
[2019-08-21] MEDS: KCL 20 MEQ TAB (K-DUR) PO SCH (06:05)
[2019-08-21] MEDS: inSUlin ASPART (NovoLOG) 1 UNIT/0.01 ML (CHARGE PER UNIT) SC SCH ×4 (06:05→21:29)
--- NOTE | 2019-08-21 08:10 | Diagnostic Imaging Report ---
EXAM: CHEST 1 VIEW, AP/PA ONLY INDICATION: Pneumonia. COMPARISON: 08/20/2019 FINDINGS: Low lung volumes accentuate the heart size and central pulmonary vascularity. Persistent airspace consolidation in the left lung laterally and both perihilar regions. Small left pleural effusion. No evident pneumothorax. IMPRESSION: 1. Examination limited by low lung volumes. 2. Persistent airspace consolidation in the left lung laterally and the bilateral perihilar regions. 3. Small left pleural effusion. Dictated by: Dictated on workstation # [id number]
[2019-08-21] MEDS: TIMOLOL MALEATE 0.5% 5 ML (TIMOPTIC) BTL OU SCH ×2 (08:48→20:59)
[2019-08-21] MEDS: AZITHROMYCIN INJECTION 500 MG in NS (IVPB) 250 ML IV SCH (08:48)
[2019-08-21] MEDS: HYDROXYCHLOROQUINE 200 MG (PLAQUENIL) TAB PO SCH ×2 (09:57→20:59)
--- NOTE | 2019-08-21 14:18 | Progress Note - Hospitalist ---
Subjective HPI/CC On Admission Date Seen by Provider: Aug 21, 2019 Time Seen by Provider: 14:21 Pt is a 54yoCM with a PMH IDDMII, HTN, and chronotropic incompetence presented to the ER due to SOB, cough, and fever after travel to multiple foreign countries. He recently was on a medical mission trip in [facility]. On August 02. He states that on the way there he visited airports in [place], [place], [place], and [place]. They left [facility] on August 12 and flew through [facility] and [place] on the way back home. He developed a fever this Friday on 08/14. Yesterday he called his PCP regarding his symptoms and COVID testing as down. CXR was also done which revealed bilateral pneumonia. He was started on Levaquin. Despite this he continued to worsen and called his doctor who recommended evaluation in the ER. CXR today shows similar but he had a new oxygen requirement and was quite tachypneic. He is being admitted for acute respiratory distress and COVID testing is pending at the time of my exam. As a precaution airborne, contact, and droplet isolation PPE were worn during my interview. Subjective/Events-last exam Pt reports feeling better today but still quite dyspneic with exertion. Titrating down on oxygen though. Focused Exam Lactate Level 08/19/19 09:35: Lactic Acid Level 1.01 Objective Exam Vital Signs Vital Signs Date Time Temp Pulse Resp B/P (MAP) Pulse Ox O2 Delivery O2 Flow Rate FiO2 08/21/19 14:15 97 Vapotherm 20.00 25 08/21/19 14:00 68 30 125/73 (90) 08/21/19 08:58 36.6 Capillary Refill : Less Than 3 Seconds General Appearance: No Apparent Distress, WD/WN Respiratory: Lungs Clear, No Respiratory Distress Cardiovascular: Regular Rate, Rhythm, No Murmur Neurologic/Psychiatric: Alert, Oriented x3 Results/Procedures Lab Laboratory Tests 08/21/19 01:30 Patient resulted labs reviewed. Imaging: Reviewed Imaging Report Assessment/Plan Assessment and Plan Assess & Plan/Chief Complaint Acute Respiratory Distress COVID19 Bilateral pneumonia Sars-Cov2 PCR is positive Maintain in airborne, contact, droplet isolation Telemetry Hydroxychloroquine and Azithromycin, otherwise symptomatic management On Vapotherm, continue to titrate down I spoke with [facility] regarding patient again today, will leave in ICU, appreciate their assistance in management IDDMII Normally takes Tresiba but has not taken for 3 days Fasting BS 198 this AM, resume basal insulin SSI only for now HTN Currently well controlled, will trend Diagnosis/Problems Diagnosis/Problems (1) SARS-associated coronavirus infection Permanent Comment: COVID19 + Last Edited By: Zaira Gama on Aug 19, 2019 21:04 (2) Essential (primary) hypertension (3) Insulin dependent diabetes mellitus (4) Acute respiratory distress Status: Acute (5) Foreign travel within last 10 days Status: Acute (6) Bilateral pneumonia Status: Acute Clinical Quality Measures DVT/VTE Risk/Contraindication: Risk Factor Score Per Nursin RFS Level Per Nursing on Admit: 2=Moderate ZAIRA GAMA MD Aug 21, 2019 14:18
[2019-08-21] MEDS: MELATONIN 3 MG TABLET PO SCH (20:59)
[2019-08-22] VITALS (24 sets, daily range): BP systolic 82–162; BP diastolic 52–85
[2019-08-22] MEDS: guaiFENesin/DM (ROBITUSSIN DM) 10 ML UDC PO PRN ×3 (05:26→21:11)
[2019-08-22 05:33] LABS: BASOPHILS % (AUTO) 0 % (0-10); EOSINOPHILS # (AUTO) 0.1 10^3/uL (0.0-0.3); EOSINOPHILS % (AUTO) 1 % (0-10); HEMATOCRIT 35 % (40-54); LYMPHOCYTES # (AUTO) 1.4 X 10^3 (1.0-4.0); LYMPHOCYTES % (AUTO) 29 % (12-44); MEAN CORPUSCULAR HEMOGLOBIN 27 PG (25-34); MEAN CORPUSCULAR HGB CONC 34 G/DL (32-36); MEAN CORPUSCULAR VOLUME 80 FL (80-99); MEAN PLATELET VOLUME 9.8 FL (7.4-10.4); MONOCYTES # (AUTO) 0.7 X 10^3 (0.0-1.0); MONOCYTES % (AUTO) 14 % (0-12); NEUTROPHILS # (AUTO) 2.7 X 10^3 (1.8-7.8); NEUTROPHILS % (AUTO) 56 % (42-75); PLATELET COUNT 166 10^3/uL (130-400); RED CELL DISTRIBUTION WIDTH 14.1 % (10.0-14.5); WHITE BLOOD COUNT 4.9 10^3/uL (4.3-11.0)
[2019-08-22 05:56] LABS: ALANINE AMINOTRANSFERASE 38 U/L (0-55); ALBUMIN 3.3 GM/DL (3.2-4.5); ALKALINE PHOSPHATASE 36 U/L (40-136); BILIRUBIN,TOTAL 0.4 MG/DL (0.1-1.0); BUN/CREATININE RATIO 8; CALCIUM 8.1 MG/DL (8.5-10.1); CARBON DIOXIDE 22 MMOL/L (21-32); CHLORIDE 106 MMOL/L (98-107); CREATININE SERUM 0.72 MG/DL (0.60-1.30); GFR ESTIMATED > 60; GLUCOSE 172 MG/DL (70-105); MAGNESIUM 1.7 MG/DL (1.6-2.4); PHOSPHORUS 3.1 MG/DL (2.3-4.7); POTASSIUM 3.7 MMOL/L (3.6-5.0); SODIUM 137 MMOL/L (135-145); TOTAL PROTEIN 6.1 GM/DL (6.4-8.2)
--- NOTE | 2019-08-22 07:16 | Diagnostic Imaging Report ---
INDICATION: Dyspnea. Comparison made with prior examination from 08/21/2019. FINDINGS: There is cardiomegaly. There is some venous congestion. There are bilateral perihilar infiltrates. There is no pleural effusion or pneumothorax. Mediastinum is unremarkable. IMPRESSION: Slightly increasing bilateral perihilar infiltrates. Cardiomegaly and some central pulmonary venous congestion. Dictated by: Dictated on workstation # [id number]
[2019-08-22] MEDS: KCL 20 MEQ TAB (K-DUR) PO SCH (07:47)
[2019-08-22] MEDS: MAGNESIUM 1 GM/100 ML IVPB 100 ML IV SCH ×3 (07:47→08:52)
[2019-08-22] MEDS: POTASSIUM CL 10MEQ/50ML IVPB 50 ML IV SCH (07:47)
[2019-08-22] MEDS: inSUlin ASPART (NovoLOG) 1 UNIT/0.01 ML (CHARGE PER UNIT) SC SCH ×4 (07:47→21:08)
[2019-08-22] MEDS: HYDROXYCHLOROQUINE 200 MG (PLAQUENIL) TAB PO SCH ×2 (08:34→20:59)
[2019-08-22] MEDS: TIMOLOL MALEATE 0.5% 5 ML (TIMOPTIC) BTL OU SCH ×2 (08:52→21:01)
--- NOTE | 2019-08-22 11:34 | Progress Note - Hospitalist ---
Subjective HPI/CC On Admission Date Seen by Provider: Aug 22, 2019 Time Seen by Provider: 11:29 Pt is a 54yoCM with a PMH IDDMII, HTN, and chronotropic incompetence presented to the ER due to SOB, cough, and fever after travel to multiple foreign countries. He recently was on a medical mission trip in [facility]. On August 02. He states that on the way there he visited airports in [place], [place], [place], and [place]. They left [facility] on August 12 and flew through [facility] and [place] on the way back home. He developed a fever this Friday on 08/14. Yesterday he called his PCP regarding his symptoms and COVID testing as down. CXR was also done which revealed bilateral pneumonia. He was started on Levaquin. Despite this he continued to worsen and called his doctor who recommended evaluation in the ER. CXR today shows similar but he had a new oxygen requirement and was quite tachypneic. He is being admitted for acute respiratory distress and COVID testing is pending at the time of my exam. As a precaution airborne, contact, and droplet isolation PPE were worn during my interview. Subjective/Events-last exam Pt reports feeling better. Able to take deeper breaths. Down to 1lpm HFNC. No complaints. Discussed potential for discharge soon and he asked me if he would have to quarantine when he is at home. Objective Exam Vital Signs Vital Signs Date Time Temp Pulse Resp B/P (MAP) Pulse Ox O2 Delivery O2 Flow Rate FiO2 08/22/19 10:27 95 High Flow N/C 1.00 08/22/19 08:00 49 28 105/73 (84) 08/22/19 06:49 25 08/22/19 00:00 36.4 Capillary Refill : Less Than 3 Seconds General Appearance: No Apparent Distress, WD/WN Respiratory: Lungs Clear, No Respiratory Distress Cardiovascular: Regular Rate, Rhythm, No Murmur Neurologic/Psychiatric: Alert, Oriented x3 Results/Procedures Lab Laboratory Tests 08/22/19 05:20 Patient resulted labs reviewed. Imaging: Reviewed Imaging Report Assessment/Plan Assessment and Plan Assess & Plan/Chief Complaint Acute Respiratory Distress COVID19 Bilateral pneumonia Sars-Cov2 PCR is positive Maintain in airborne, contact, droplet isolation Telemetry Hydroxychloroquine and Azithromycin, otherwise symptomatic management Now on high flow NC Check EKG for QTC Discussed discharge planning with him and he questioned if he would nee dot quarantine at home, I reinforced the importance of quarantining with no visitors. I am not sure he understands the extent to which he has to quarantine so I called and spoke with Infection Control who will talk to him tomorrow and alert KDYOMI as there apparently have also been discrepancies in his contact tracing IDDMII Normally takes Tresiba Fasting BS 172, increase Levemir SSI HTN Currently well controlled, will trend Diagnosis/Problems Diagnosis/Problems (1) SARS-associated coronavirus infection Permanent Comment: COVID19 + Last Edited By: Zaira Gama on Aug 19, 2019 21:04 (2) Essential (primary) hypertension (3) Insulin dependent diabetes mellitus (4) Acute respiratory distress Status: Acute (5) Foreign travel within last 10 days Status: Acute (6) Bilateral pneumonia Status: Acute Clinical Quality Measures DVT/VTE Risk/Contraindication: Risk Factor Score Per Nursin RFS Level Per Nursing on Admit: 2=Moderate ZAIRA GAMA MD Aug 22, 2019 11:34
--- NOTE | 2019-08-22 18:49 | NUR ---
Pt was seen by Dr Gama. EKG ordered and preformed to check prolonged QT. Results sent to Dr Gama. Pt has been titrated down to High Flow Nasal Canula 1L. Tolerating well. Still has episodes of increased SOA during exertion. Pt states he feels better and feels like he can take a deeper breath. Pt continues to be in good spirits. Spoke with pt about the importance of staying quarantined when he is discharged. No new complaints. No acute changes. Vitals have remained stable. Will continue to monitor.
[2019-08-22] MEDS: MELATONIN 3 MG TABLET PO SCH (21:00)
[2019-08-23] VITALS (15 sets, daily range): BP systolic 92–166; BP diastolic 50–99
[2019-08-23 02:45] LABS: BASOPHILS % (AUTO) 0 % (0-10); EOSINOPHILS # (AUTO) 0.1 10^3/uL (0.0-0.3); EOSINOPHILS % (AUTO) 2 % (0-10); HEMATOCRIT 37 % (40-54); HEMOGLOBIN 12.8 G/DL (13.3-17.7); LYMPHOCYTES # (AUTO) 1.8 X 10^3 (1.0-4.0); LYMPHOCYTES % (AUTO) 32 % (12-44); MEAN CORPUSCULAR HEMOGLOBIN 27 PG (25-34); MEAN CORPUSCULAR HGB CONC 34 G/DL (32-36); MEAN CORPUSCULAR VOLUME 80 FL (80-99); MEAN PLATELET VOLUME 10.1 FL (7.4-10.4); MONOCYTES # (AUTO) 0.6 X 10^3 (0.0-1.0); MONOCYTES % (AUTO) 11 % (0-12); NEUTROPHILS # (AUTO) 3.1 X 10^3 (1.8-7.8); NEUTROPHILS % (AUTO) 55 % (42-75); PLATELET COUNT 197 10^3/uL (130-400); RED CELL DISTRIBUTION WIDTH 14.2 % (10.0-14.5); WHITE BLOOD COUNT 5.7 10^3/uL (4.3-11.0)
[2019-08-23 03:00] LABS: ALANINE AMINOTRANSFERASE 50 U/L (0-55); ALBUMIN 3.5 GM/DL (3.2-4.5); ALKALINE PHOSPHATASE 36 U/L (40-136); BILIRUBIN,TOTAL 0.4 MG/DL (0.1-1.0); BUN/CREATININE RATIO 8; CALCIUM 8.9 MG/DL (8.5-10.1); CARBON DIOXIDE 24 MMOL/L (21-32); CHLORIDE 104 MMOL/L (98-107); CREATININE SERUM 0.75 MG/DL (0.60-1.30); GFR ESTIMATED > 60; GLUCOSE 169 MG/DL (70-105); PHOSPHORUS 3.7 MG/DL (2.3-4.7); POTASSIUM 3.9 MMOL/L (3.6-5.0); SODIUM 138 MMOL/L (135-145); TOTAL PROTEIN 6.4 GM/DL (6.4-8.2)
[2019-08-23] MEDS: MAGNESIUM 1 GM/100 ML IVPB 100 ML IV SCH (04:53)
[2019-08-23] MEDS: KCL 20 MEQ TAB (K-DUR) PO SCH (04:53)
[2019-08-23] MEDS: inSUlin ASPART (NovoLOG) 1 UNIT/0.01 ML (CHARGE PER UNIT) SC SCH ×2 (04:53→11:49)
[2019-08-23] MEDS: POTASSIUM CL 10MEQ/50ML IVPB 50 ML IV SCH (04:53)
[2019-08-23] MEDS: HYDROXYCHLOROQUINE 200 MG (PLAQUENIL) TAB PO SCH (09:17)
[2019-08-23] MEDS: TIMOLOL MALEATE 0.5% 5 ML (TIMOPTIC) BTL OU SCH (09:17)
--- NOTE | 2019-08-23 10:53 | Discharge Summary ---
Discharge Summary Hospital Course Was the Problem List Reviewed?: Yes Problems/Dx: (1) SARS-associated coronavirus infection Status: Acute (2) Essential (primary) hypertension Status: Chronic (3) Insulin dependent diabetes mellitus Status: Chronic (4) Acute respiratory distress Status: Resolved (5) Foreign travel within last 10 days Status: Acute (6) Bilateral pneumonia Status: Acute Hospital Course Date of Admission: Aug 19, 2019 at 11:26 Admission Diagnosis : Family Physician/Provider: Yray Valdez MD Date of Discharge: 08/23/19 Discharge Diagnosis: SARS-associated coronavirus infection Hospital Course: Jeremy Malcolm is a 54-year-old male with past medical history of hypertension and diabetes who presented with fever, cough, and shortness of breath after recent foreign travel. He underwent a chest x-ray and coronavirus testing as an outpatient. The chest x-ray showed a bilateral pneumonia and he was started on Levaquin. The coronavirus test was pending at the time of admission and returned positive. He was treated with a course of hydroxychloroquine and azithromycin. His acute hypoxic respiratory failure was resolved at the time of discharge. He was discharged in stable condition. He will follow-up with [facility] for follow-up outpatient testing. Until that time, he will remain on self quarantine. Labs and Pending Lab Test: Laboratory Tests 08/22/19 11:23: Glucometer 194H 08/22/19 16:47: Glucometer 142H 08/22/19 21:03: Glucometer 192H 08/23/19 02:30: White Blood Count 5.7, Red Blood Count 4.68, Hemoglobin 12.8L, Hematocrit 37L, Mean Corpuscular Volume 80, Mean Corpuscular Hemoglobin 27, Mean Corpuscular Hemoglobin Concent 34, Red Cell Distribution Width 14.2, Platelet Count 197, Mean Platelet Volume 10.1, Neutrophils (%) (Auto) 55, Lymphocytes (%) (Auto) 32, Monocytes (%) (Auto) 11, Eosinophils (%) (Auto) 2, Basophils (%) (Auto) 0, N eutrophils # (Auto) 3.1, Lymphocytes # (Auto) 1.8, Monocytes # (Auto) 0.6, Eosinophils # (Auto) 0.1, Basophils # (Auto) 0.0, Sodium Level 138, Potassium Level 3.9, Chloride Level 104, Carbon Dioxide Level 24, Anion Gap 10, Blood Urea Nitrogen 6L, Creatinine 0.75, Estimat Glomerular Filtration Rate > 60, BUN/Creatinine Ratio 8, Glucose Level 169H, Calcium Level 8.9, Corrected Calcium 9.3, Phosphorus Level 3.7, Magnesium Level 2.0, Total Bilirubin 0.4, Aspartate Amino Transf (AST/SGOT) 41H, Alanine Aminotransferase (ALT/SGPT) 50, Alkaline Phosphatase 36L, Total Protein 6.4, Albumin 3.5 Microbiology 08/19/19 Blood Culture - Preliminary, Resulted No growth 08/19/19 MRSA Screen - Final, Complete MRSA not isolated Home Meds Active Reported Ibuprofen 200 Mg Tablet 400 Mg PO Q8H PRN Tylenol Extra Strength (Acetaminophen) 500 Mg Tablet 1,000 Mg PO Q8H PRN Tresiba Flextouch U-200 (Insulin Degludec) 200 Unit/1 Ml Insuln.pen 34 Units SC HS Timolol Maleate 0.5% (Timolol Maleate) 5 Ml Drops 1 Drop OU BID Ventolin Hfa (Albuterol Sulfate) 18 Gm Hfa.aer.ad 2 Puff PO Q4 -6H PRN Novolog Flexpen (Insulin Aspart) 300 Units/3 Ml Solution Units SC TIDWM USES PER SLIDING SCALE Janumet Xr 50-1,000 mg Tablet (Sitagliptin Phos/Metformin HCl) 1 Each Tbmp.24hr 2 Ea PO HS Lisinopril 5 Mg Tablet 5 Mg PO DAILY Jardiance (Empagliflozin) 10 Mg Tablet 10 Mg PO DAILY Benzonatate 100 Mg Capsule 100-200 Mg PO TID PRN Prometh-Codein 6.25-10 mg/5 ml (Promethazine HCl/Codeine) 5 Ml Syrup 5 Ml PO Q4H PRN Levofloxacin 750 Mg Tablet 750 Mg PO DAILY FILLED 08-18-2019 #7/7DAY SUPPLY Albuterol Sulfate 2.5 Mg/3 Ml Vial.neb 3 Ml NEB Q6H PRN Assessment/Pt Instructions Take medications as prescribed. You are being placed on self-quarantine at this time. [facility] will guide you as to when you will be able to come out of quarantine. They have reported that you will need to have two negative COVID tests prior to being taken out of quarantine. Discharge Planning: <30 minutes discharge planning Discharge Instructions Discharge Diet: No Restrictions Activity as Tolerated: Yes Discharge Physical Examination Vital Signs Vital Signs Date Time Temp Pulse Resp B/P (MAP) Pulse Ox O2 Delivery O2 Flow Rate FiO2 08/23/19 10:17 36.0 60 22 164/87 95 Room Air 08/23/19 07:00 1.00 08/22/19 06:49 25 General Appearance: No Apparent Distress, WD/WN Respiratory: Lungs Clear, Normal Breath Sounds, No Respiratory Distress Cardiovascular: Regular Rate, Rhythm, No Edema, No Murmur Gastrointestinal: Normal Bowel Sounds, Non Tender, Soft Extremity: Normal Inspection, Non Tender, No Pedal Edema Skin: Normal Color, Warm/Dry Neurologic/Psychiatric: Alert, Oriented x3, No Motor/Sensory Deficits, Normal Mood/Affect Allergies: Coded Allergies: cefazolin (Verified Allergy, Unknown, vomiting, 08/19/19) tolerates rocephin droperidol (Verified Allergy, Unknown, 08/19/19) morphine (Verified Allergy, Unknown, 08/19/19) hypotension nalbuphine (Verified Allergy, Unknown, 08/19/19) Copy Copies To 1: YARY VALDEZ MD Discharge Summary Date of Admission Aug 19, 2019 at 11:26 Date of Discharge Discharge Date: Aug 23, 2019 Discharge Time: 10:52 Admission Diagnosis Acute Respiratory Distress Discharge Diagnosis (1) SARS-associated coronavirus infection Status: Acute (2) Essential (primary) hypertension Status: Chronic (3) Insulin dependent diabetes mellitus Status: Chronic (4) Acute respiratory distress Status: Resolved (5) Foreign travel within last 10 days Status: Acute (6) Bilateral pneumonia Status: Acute Clinical Quality Measures DVT/VTE Risk/Contraindication: Risk Factor Score Per Nursin RFS Level Per Nursing on Admit: 2=Moderate LOW MCKINLEY MD Aug 23, 2019 10:31
--- NOTE | 2019-08-23 12:07 | Diagnostic Imaging Report ---
EXAMINATION: Chest radiograph, portable AP view. DATE: 08/23/2019 3:57 AM hours. INDICATION: 54-year-old male, acute respiratory distress. COVID 19 Positive. COMPARISON: August 22, 2019. FINDINGS: Stable overall appearance of the cardiomediastinal silhouette. There is no identified pneumothorax. There is no large pleural effusion. There are patchy areas of opacification in the right mid and upper lung, right lung base, and left lung. Some areas of opacification in the right upper lung do appear to be new. The opacification in the right midlung is less prominent since comparison study. Overall lung aeration is largely similar to comparison exam. IMPRESSION: 1. Largely similar overall aeration of the lungs in multifocal patchy consolidation in the lungs since August 22, 2019. Dictated by: Dictated on workstation # [id number]
--- NOTE | 2019-08-24 08:28 | Physician Query Clarification ---
PQ-Conflicting Diagnosis Admission/Discharge Admission Date: Aug 19, 2019 at 11:26 Discharge Date: Aug 23, 2019 at 13:45 The medical record reflects the following clinical scenario: History/Risk Factors: bilateral pneumonia, covid-19, diabetes, HTN Clinical Findings: positive pina virus, Pco2 - 33, Po2 89, PH 7.43, R 28, BP 150/77, Treatment: Oxymask, Vapotherm, Albuterol, IV Levofloxacin, IV Azithromycin, IV Plaquenil Question: Do you agree with the impression of the acute respiratory distress OR acute respiratory failure? Acute respiratory distress is documented throughout the record and listed as a final diagnosis but in the body of the DS you state; "His acute hypoxic respiratory failure was resolved at the time of discharge. " Please clarify. Please document a response in Progress Note or Discharge Summary. 1. Yes, patient had acute respiratory distress and NOT acute hypoxic respiratory failure 2. No, patient DID NOT have acute respiratory distress. Pt HAD acute hypoxic respiratory failure 3. Other, with explanation of clinical findings 4. Clinically undetermined, no explanation for clinical findings. PHYSICIAN RESPONSE Do you agree w/Consulting Dx?: Yes Please remember a lack of response to the above will prompt a phone page by CDI/Coding staff. In responding to this query, please exercise your independent professional judgment. The purpose of this communication is to more accurately reflect the complexity of your patients condition. The fact that a question is asked does not imply that any particular answer is desired or expected. Thank you for your timely response to this clarification. Requestors name: Erich THIS PHYSICIAN QUERY FORM IS A PERMANENT PART OF THE MEDICAL RECORD ERICH CORCORAN Aug 24, 2019 08:28 LOW MCKINLEY MD Aug 26, 2019 06:58
== END 2019-08-23 13:45 | disposition home or self-care (01) | DRG 194 ==
LOC: EDUNIT# 09:00 → ER FS 09:01 → ICU 11:26
PROVIDERS: ADMIT Family Medicine; ATTEND Family Medicine
DX: J12.89 Other viral pneumonia (principal); B97.29 Other coronavirus as the cause of diseases classified elsewhere; R06.03 Acute respiratory distress; I45.89 Other specified conduction disorders; I10 Essential (primary) hypertension; E11.9 Type 2 diabetes mellitus without complications; Z79.4 Long term (current) use of insulin
CPT/HCPCS: 36415; 71045; 80053; 82728; 82805; 82962; 83540; 83605; 83615; 83735; 84100; 84145; 85025; 85379; 85610; 85652; 86141; 87040; 87081; 93005; 94640; 96365

== ENCOUNTER → 2019-09-02 | Outpatient (CLI) | payer OTHER ==
--- NOTE | 2019-09-02 11:11 | Diagnostic Imaging Report ---
EXAMINATION: Chest 2 view HISTORY: Follow-up pneumonia. Positive Covid-19. COMPARISON: Chest radiograph on 08/23/2019. FINDINGS: There is slight improvement in aeration in the left lung base with continued patchy opacities in the periphery of the mid and lower left lung and mid right lung. No large pleural effusion or pneumothorax. The cardiac silhouette is stable. No acute osseous abnormalities. IMPRESSION: 1. Slight improved aeration in the left lung base with unchanged patchy opacities in the mid and lower periphery of the left lung and right midlung. No pleural effusion. Dictated by: Dictated on workstation # [id number]
== END ==
LOC: RAD FS 10:45
PROVIDERS: ATTEND Family Medicine
DX: U07.1 COVID-19 (principal); J12.89 Other viral pneumonia
CPT/HCPCS: 71046

== ENCOUNTER → 2019-10-22 | Outpatient (CLI) | payer OTHER ==
--- NOTE | 2019-10-22 15:18 | Diagnostic Imaging Report ---
INDICATION: Shortness of breath and positive Covid. TIME OF EXAM: 2:24 p.m. COMPARISON: Correlation is made with prior chest from 09/02/2019. FINDINGS: Patchy airspace infiltrates in bilateral lungs has largely cleared. The pulmonary vascularity is normal. No effusion or pneumothorax is seen. IMPRESSION: Improved aeration of both lungs when compared with examination from 09/02/2019. Dictated by: Dictated on workstation # [id number]
== END ==
LOC: RAD FS 13:54
PROVIDERS: ATTEND Family Medicine
DX: U07.1 COVID-19 (principal)
CPT/HCPCS: 71046

== ENCOUNTER → 2020-01-19 | Outpatient (CLI) | payer OTHER ==
[~2020-01-19] MED LIST changes: +RT-ALBUTEROL SULF 2.5 MG/3 ML PRE-MIX VIAL INH ONE
== END ==
LOC: RT 12:27
PROVIDERS: ATTEND Family Medicine
DX: R06.02 Shortness of breath (principal)
CPT/HCPCS: 94060; 94726; 94729

== ENCOUNTER → 2021-03-30 | Outpatient (CLI) | payer OTHER ==
[~2021-03-30] MED LIST changes: -LISI-556 PO; +LISI-729 PO; -RT-ALBUTEROL SULF 2.5 MG/3 ML PRE-MIX VIAL INH ONE
--- NOTE | 2021-03-30 14:02 | Diagnostic Imaging Report ---
INDICATION: Dyspnea on exertion. TIME OF EXAM: 1:50 PM Correlation is made with prior chest from 10/22/2019. The heart size is normal. The pulmonary vascularity is unremarkable. The lungs are clear. No infiltrate, effusion or pneumothorax is detected. IMPRESSION: No acute cardiopulmonary process is detected. Dictated by: Dictated on workstation # [id number]
== END ==
LOC: RAD FS 13:39
PROVIDERS: ATTEND Registered Nurse Emergency
DX: R06.09 Other forms of dyspnea (principal)
CPT/HCPCS: 71046

== ENCOUNTER 2021-04-26 17:03 | Inpatient (IN) | payer OTHER ==
[~2021-04-26] VITALS: Ht 182.8 cm; Wt 97.8 kg
[~2021-04-26 17:03] MED LIST changes: -LISI-729 PO; +LISI5TAB20 PO
--- OUTSIDE RECORDS SUMMARY | 2021-04-26 17:06 | XMS REPORT | Clinical Summary ---
Author Author [facility] Organization [facility] Address Unknown Phone Unavailable Care Team Providers Care Lead Pl Sql Developer Name Role Phone Sabino Garay GURMEET [phone] Unavailable Chinedu Krause MD PCP Unavailable Source Comments Some departments are not documenting in the electronic medical record. If you d o not see the information that you expected, contact Release of Information in [facility] [employer] Information Management department at [phone] for further assistan ce in locating additional records.[facility] Allergies Comments Active Allergy Reactions Severity Noted Date Cefazolin VOMITING Low 01/30/2017 Droperidol HALLUCINATION High 01/30/2017 S Morphine HYPOTENSION High 01/30/2017 Nalbuphine HALLUCINATION High 01/30/2017 S Medications End Date Status Medication Sig Dispensed Refills Start Date Active canagliflozin (INVOKANA) Take 100 mg 0 100 mg tablet by mouth daily with breakfast. Active sAXagliptin-metformin Take 1 tablet 0 (KOMBIGLYZE XR) 5-1,000 by mouth mg TM24 daily with dinner. Active timolol maleate Apply 1 drop 0 (TIMOPTIC) 0.5 % to both eyes ophthalmic solution twice daily. Active insulin lispro(+) Inject under 0 (HUMALOG KWIKPEN) 100 the skin unit/mL injection PEN three times daily with meals. Active insulin glargine (TOUJEO INJECT 40 0 06/23 SOLOSTAR) 300 unit/mL UNITS BY 8 (1.5 mL) injectable SUBCUTANEOUS INJECTION DAILY. 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 08/06/2017 lower extremity Family History Medical History Relation Name Comments Diabetes Father Heart Disease Father Hypertension Father Heart Disease Maternal Grandfather Coronary Artery Disease Maternal Grandmother Heart Disease Maternal Grandmother Cancer-Breast Mother High Cholesterol Mother Cancer-Colon Paternal Grandfather Relation Name Status Comments Father Maternal Grandfather Maternal Grandmother Mother Paternal Grandfather Social History Date Tobacco Use Types Packs/Day Years Used Never Smoker Smokeless Tobacco: Never Used Sex Assigned at Date Recorded Not on file Last Filed Vital Signs Reading Time Taken Comments Vital Sign 139/85 08/06/2017 11:19 AM CDT Blood Pressure 60 08/06/2017 11:19 AM CDT Pulse 36.2 C (97.2 F) 08/06/2017 11:19 AM CDT Temperature 18 08/06/2017 11:19 AM CDT Respiratory Rate 100% 08/06/2017 11:19 AM CDT Oxygen Saturation - - Inhaled Oxygen Concentration 105.1 kg (231 lb 12.8 oz) 08/06/2017 11:19 AM CDT Weight 182.9 cm (6') 08/06/2017 11:19 AM CDT Height 31.44 08/06/2017 11:19 AM CDT Body Mass Index Plan of Treatment Health Maintenance Due Date Last Done Comments HIV SCREENING 1978 DTAP/TDAP VACCINES (1 - 1981 Tdap) HEPATITIS C SCREENING 1981 PHYSICAL (COMPREHENSIVE) 1981 EXAM COLORECTAL CANCER 2013 SCREENING SHINGLES RECOMBINANT 2013 VACCINE (1 of 2) INFLUENZA VACCINE 12/24/2020 Results Not on filefrom Last 3 Months Insurance Type Payer Benefit Subscriber ID Effective Phone Address Plan / Dates Group PPO BCBS [employer] [id number] 2017-P [phone] [id number] [place] [address] (Home) [place], [place] [phone] 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
[2021-04-26] MEDS ORDERED: ASPIRIN 81 MG CHEW (CHILDREN'S ASA) PO ONE (17:15)
[2021-04-26] MEDS ORDERED: MECLIZINE 25 MG (ANTIVERT) TAB PO ONE (17:15)
[2021-04-26] MEDS ORDERED: ONDANSETRON 4 MG/2 ML (SDV) Z0FRAN IVP ONE ×2 (17:15→17:45)
[2021-04-26] MEDS ORDERED: LACTATED RINGERS 1,000 ML IV SCH (17:15)
[2021-04-26] MEDS ORDERED: NS IV 1000 ML 1,000 ML ONE (17:17)
[2021-04-26 17:26] LABS: BASOPHILS % (AUTO) 0 % (0-10); EOSINOPHILS % (AUTO) 1 % (0-10); HEMATOCRIT 50 % (40-54); HEMOGLOBIN 17.2 g/dL (13.3-17.7); LYMPHOCYTES % (AUTO) 17 % (12-44); MEAN CORPUSCULAR HEMOGLOBIN 29 pg (25-34); MEAN CORPUSCULAR HGB CONC 35 g/dL (32-36); MEAN CORPUSCULAR VOLUME 85 fL (80-99); MEAN PLATELET VOLUME 10.4 fL (9.0-12.2); MONOCYTES % (AUTO) 6 % (0-12); NEUTROPHILS % (AUTO) 75 % (42-75); PLATELET COUNT 160 10^3/uL (130-400); WHITE BLOOD COUNT 14.3 10^3/uL (4.3-11.0)
[2021-04-26 17:27] LABS: EOSINOPHILS # (AUTO) 0.2 10^3/uL (0.0-0.3); LYMPHOCYTES # (AUTO) 2.4 X 10^3 (1.0-4.0); MONOCYTES # (AUTO) 0.9 X 10^3 (0.0-1.0); NEUTROPHILS # (AUTO) 10.7 X 10^3 (1.8-7.8)
--- NOTE | 2021-04-26 17:44 | Diagnostic Imaging Report ---
PROCEDURE: CT head without contrast. TECHNIQUE: Multiple contiguous axial images were obtained through the brain without the use of intravenous contrast. Auto Exposure Controls were utilized during the CT exam to meet ALARA standards for radiation dose reduction. INDICATION: Presyncope, nausea and dizziness The ventricles are normal in size, shape and position. There are no masses or hemorrhages. There are no extra-axial fluid collections. Paranasal sinuses are clear. IMPRESSION: Negative CT head Dictated by: Dictated on workstation # [id number]
--- NOTE | 2021-04-26 17:44 | Diagnostic Imaging Report ---
INDICATION: Nausea, syncope Portable chest 5:34 PM Heart size and pulmonary vascularity are normal. Lungs are clear. There are no effusions or pneumothoraces. IMPRESSION: Negative chest Dictated by: Dictated on workstation # [id number]
[2021-04-26] MEDS ORDERED: DIAZEPAM 5 MG (VALIUM) TABLET PO ONE (17:45)
[2021-04-26 18:12] LABS: PROTHROMBIN TIME PATIENT 13.3 SEC (12.2-14.7)
[2021-04-26 18:22] LABS: POTASSIUM 3.9 MMOL/L (3.6-5.0); SODIUM 142 MMOL/L (135-145)
[2021-04-26 18:23] LABS: ALANINE AMINOTRANSFERASE 65 U/L (0-55); ALKALINE PHOSPHATASE 32 U/L (40-136); BUN/CREATININE RATIO 16; CALCIUM 9.1 MG/DL (8.5-10.1); CARBON DIOXIDE 24 MMOL/L (21-32); CHLORIDE 105 MMOL/L (98-107); CREATININE SERUM 0.87 MG/DL (0.60-1.30); GFR ESTIMATED 90; GLUCOSE 122 MG/DL (70-105); TOTAL PROTEIN 6.9 GM/DL (6.4-8.2)
[2021-04-26 18:24] LABS: ALBUMIN 4.2 GM/DL (3.2-4.5); LIPASE 22 U/L (8-78)
[2021-04-26 18:47] LABS: BAND NEUTROPHILS 2 %; BASOPHILS % (MANUAL) 0 %; EOSINOPHILS % (MANUAL) 2 %; LYMPHOCYTES % (MANUAL) 20 %; MONOCYTES % (MANUAL) 6 %; NEUTROPHILS % (MANUAL) 70 %
--- NOTE | 2021-04-26 18:47 | ED General ---
General Chief Complaint: General Problems/Pain Stated Complaint: NEAR SYNCOPE,NAUSEA History of Present Illness Date Seen by Provider: Apr 26, 2021 Time Seen by Provider: 18:43 Initial Comments Patient presenting to emergency department as a code red via EMS for evaluation of dizziness nausea and impending sensation that something is not right. Patient was apparently sitting in a tree stand when he had sudden onset of the above symptoms. I asked him if at the dizziness was more of a room spinning sensation or lightheaded and he said it was both but later on he does admit that it is more of a vertigo sensation. He has intense nausea with the symptom and initial abdominal pain but no chest pain. He does feel slightly short of breath. No vomiting unilateral weakness numbness or tingling. He appears uncomfortable but nontoxic with normal vital signs. Allergies and Home Medications Allergies Coded Allergies: cefazolin (Verified Allergy, Unknown, vomiting, 08/19/19) tolerates rocephin droperidol (Verified Allergy, Unknown, 08/19/19) morphine (Verified Allergy, Unknown, 08/19/19) hypotension nalbuphine (Verified Allergy, Unknown, 08/19/19) Patient Home Medication List Home Medication List Reviewed: Yes Acetaminophen (Tylenol Extra Strength) 500 Mg Tablet, 1,000 MG PO Q8H PRN for PAIN-MILD (1-4), (Reported) Entered as Reported by: MARK ISIDRO on 08/20/19 1047 Albuterol Sulfate (Albuterol Sulfate) 2.5 Mg/3 Ml Vial.neb, 3 ML NEB Q6H PRN for SHORTNESS OF BREATH, (Reported) Entered as Reported by: ALVINA LONG on 08/19/1925 Albuterol Sulfate (Ventolin Hfa) 18 Gm Hfa.aer.ad, 2 PUFF PO Q4 -6H PRN for SHORTNESS OF BREATH, (Reported) Entered as Reported by: MARK ISIDRO on 08/20/19 1045 Benzonatate (Benzonatate) 100 Mg Capsule, 100-200 MG PO TID PRN for COUGH, (Reported) Entered as Reported by: ALVINA LONG on 08/19/19924 Empagliflozin (Jardiance) 10 Mg Tablet, 10 MG PO DAILY, (Reported) Entered as Reported by: ALVINA LONG on 08/19/19924 Ibuprofen (Ibuprofen) 200 Mg Tablet, 400 MG PO Q8H PRN for PAIN-MILD (1-4), (Reported) Entered as Reported by: MARK ISIDRO on 08/20/19 104 Insulin Aspart (Novolog Flexpen) 300 Units/3 Ml Solution, UNITS SC TIDWM, (Reported) Entered as Reported by: ALVINA LONG on 08/19/19 09 Insulin Degludec (Tresiba Flextouch U-200) 200 Unit/1 Ml Insuln.pen, 34 UNITS SC HS, (Reported) Entered as Reported by: MARK ISIDRO on 08/20/19 104 Lisinopril (Lisinopril) 5 Mg Tablet, 5 MG PO DAILY, (Reported) Entered as Reported by: ALVINA LONG on 08/19/19924 Promethazine HCl/Codeine (Prometh-Codein 6.25-10 mg/5 ml) 5 Ml Syrup, 5 ML PO Q4H PRN for COUGH, (Reported) Entered as Reported by: ALVINA LONG on 08/19/19924 Sitagliptin Phos/Metformin HCl (Janumet Xr 50-1,000 mg Tablet) 1 Each Tbmp.24hr, 2 EA PO HS, (Reported) Entered as Reported by: ALVINA LONG on 08/19/19924 Timolol Maleate (Timolol Maleate 0.5%) 5 Ml Drops, 1 DROP OU BID, (Reported) Entered as Reported by: MARK ISIDRO on 08/20/19 104 Review of Systems Review of Systems Constitutional: dizziness EENTM: no symptoms reported Respiratory: no symptoms reported Cardiovascular: no symptoms reported Gastrointestinal: nausea Musculoskeletal: no symptoms reported Skin: no symptoms reported Psychiatric/Neurological: No Symptoms Reported All Other Systems Reviewed Negative Unless Noted: Yes Past Tynneik-Eqcpik-Xftbru Hx Past Medical History Surgeries: Yes (R & L rotator cuff) Orthopedic Respiratory: No Cardiac: Yes Hypertension Neurological: No Genitourinary: No Gastrointestinal: No Musculoskeletal: No Endocrine: Yes Diabetes, Insulin dep HEENT: No Cancer: No Integumentary: No Physical Exam Vital Signs Vital Signs - First Documented 04/26/21 20:43 Temp 39.1 Capillary Refill : Height, Weight, BMI Height: '" Weight: lbs. oz. kg; 28.00 BMI Method: General Appearance: No Apparent Distress, WD/WN Eyes: Bilateral Eye PERRL, Bilateral Eye EOMI, Bilateral Eye Other (Horizontal nystagmus on rightward gaze that is fatigable) HEENT: PERRL/EOMI Neck: Supple Respiratory: Lungs Clear, No Respiratory Distress Cardiovascular: Regular Rate, Rhythm Gastrointestinal: Non Tender, Soft Extremity: Normal Capillary Refill, No Pedal Edema Neurologic/Psychiatric: Alert, Oriented x3, No Motor/Sensory Deficits Skin: Warm/Dry Progress/Results/Core Measures Suspected Sepsis SIRS Temperature: Pulse: Respiratory Rate: Laboratory Tests 04/26/21 17:07: White Blood Count 14.3H Blood Pressure / Mean: Laboratory Tests 04/26/21 17:07: Platelet Count 160 04/26/21 17:43: Creatinine 0.87, INR Comment 1.0, Total Bilirubin 1.0 Results/Orders Lab Results Laboratory Tests Test 04/26/21 17:07 04/26/21 17:43 04/26/21 20:25 04/26/21 20:48 Range/Units White Blood Count 14.3 H 4.3-11.0 10^3/uL Red Blood Count 5.86 H 4.30-5.52 10^6/uL Hemoglobin 17.2 13.3-17.7 g/dL Hematocrit 50 40-54 % Mean Corpuscular Volume 85 80-99 fL Mean Corpuscular Hemoglobin 29 25-34 pg Mean Corpuscular Hemoglobin Concent 35 32-36 g/dL Red Cell Distribution Width 13.4 10.0-14.5 % Platelet Count 160 130-400 10^3/uL Mean Platelet Volume 10.4 9.0-12.2 fL Immature Granulocyte % (Auto) 0 % Neutrophils (%) (Auto) 75 42-75 % Lymphocytes (%) (Auto) 17 12-44 % Monocytes (%) (Auto) 6 0-12 % Eosinophils (%) (Auto) 1 0-10 % Basophils (%) (Auto) 0 0-10 % Neutrophils # (Auto) 10.7 H 1.8-7.8 X 10^3 Lymphocytes # (Auto) 2.4 1.0-4.0 X 10^3 Monocytes # (Auto) 0.9 0.0-1.0 X 10^3 Eosinophils # (Auto) 0.2 0.0-0.3 10^3/uL Basophils # (Auto) 0.0 0.0-0.1 10^3/uL Immature Granulocyte # (Auto) 0.1 0.0-0.1 10^3/uL Neutrophils % (Manual) 70 % Lymphocytes % (Manual) 20 % Monocytes % (Manual) 6 % Eosinophils % (Manual) 2 % Basophils % (Manual) 0 % Band Neutrophils 2 % Prothrombin Time 13.3 12.2-14.7 SEC INR Comment 1.0 0.8-1.4 Activated Partial Thromboplast Time 25 24-35 SEC D-Dimer 0.62 H 0.00-0.49 UG/ML Sodium Level 142 135-145 MMOL/L Potassium Level 3.9 3.6-5.0 MMOL/L Chloride Level 105 98-107 MMOL/L Carbon Dioxide Level 24 21-32 MMOL/L Anion Gap 13 5-14 MMOL/L Blood Urea Nitrogen 14 7-18 MG/DL Creatinine 0.87 0.60-1.30 MG/DL Estimat Glomerular Filtration Rate 90 BUN/Creatinine Ratio 16 Glucose Level 122 H 70-105 MG/DL Calcium Level 9.1 8.5-10.1 MG/DL Corrected Calcium 8.9 8.5-10.1 MG/DL Total Bilirubin 1.0 0.1-1.0 MG/DL Aspartate Amino Transf (AST/SGOT) 41 H 5-34 U/L Alanine Aminotransferase (ALT/SGPT) 65 H 0-55 U/L Alkaline Phosphatase 32 L 40-136 U/L Troponin I < 0.30 < 0.30 <0.30 NG/ML Pro-B-Type Natriuretic Peptide 16.9 <75.0 PG/ML Total Protein 6.9 6.4-8.2 GM/DL Albumin 4.2 3.2-4.5 GM/DL Lipase 22 8-78 U/L Influenza Type A Antigen NEGATIVE NEGATIVE Influenza Type B Antigen NEGATIVE NEGATIVE SARS-CoV-2 RNA (RT-PCR) Not Detected Not Detecte Test 04/26/21 21:18 Range/Units Urine Color YELLOW Urine Clarity CLEAR Urine pH 6.0 5-9 Urine Specific [place] 1.010 L 1.016-1.022 Urine Protein NEGATIVE NEGATIVE Urine Glucose (UA) 3+ H NEGATIVE Urine Ketones NEGATIVE NEGATIVE Urine Nitrite NEGATIVE NEGATIVE Urine Bilirubin NEGATIVE NEGATIVE Urine Urobilinogen 0.2 < = 1.0 MG/DL Urine Leukocyte Esterase NEGATIVE NEGATIVE Urine RBC (Auto) NEGATIVE NEGATIVE Urine RBC NONE /HPF Urine WBC RARE /HPF Urine Squamous Epithelial Cells NONE /HPF Urine Crystals NONE /LPF Urine Bacteria NEGATIVE /HPF Urine Casts NONE /LPF Urine Mucus NEGATIVE /LPF Urine Culture Indicated NO My Orders Orders - JONNY DENTON DO Iv/Invasive Line Insertion .IV start (04/26/21 17:11) Ct Head Wo (04/26/21 17:11) Cbc With Automated Diff (04/26/21 17:11) Comprehensive Metabolic Panel (04/26/21 17:11) Ekg Tracing (04/26/21 17:11) Troponin I Fs (04/26/21 17:11) Lipase (04/26/21 17:11) Partial Thromboplastin Time (04/26/21 17:11) Probnp Fs (04/26/21 17:11) Protime With Inr (04/26/21 17:11) Chest 1 View Ap/Pa Only (04/26/21 17:11) Ondansetron Injection (Zofran Injectio (04/26/21 17:15) Lactated Ringers (Lr 1000 Ml Iv Solution (04/26/21 17:15) Aspirin Chewable Tablet (Baby Aspirin Ch (04/26/21 17:15) Meclizine Tablet (Antivert Tablet) (04/26/21 17:15) Ns Iv 1000 Ml (Sodium Chloride 0.9%) (04/26/21 17:17) Manual Differential (04/26/21 17:07) Ondansetron Injection (Zofran Injectio (04/26/21 17:45) Diazepam Tablet (Valium Tablet) (04/26/21 17:45) Promethazine Injection (Phenergan Injec (04/26/21 19:45) Diphenhydramine Injection (Benadryl Inje (04/26/21 19:45) Ns Iv 1000 Ml (Sodium Chloride 0.9%) (04/26/21 19:45) Troponin I Fs (04/26/21 19:54) Fibrin Degradation Products (04/26/21 19:55) Ketorolac Injection (Toradol Injection) (04/26/21 20:30) Acetaminophen Tablet (Tylenol Tablet) (04/26/21 20:45) Ua Culture If Indicated (04/26/21 20:38) Influenza A & B Antigens (04/26/21 20:38) Ct Clara Chest/Noang Abd-Pelv W (04/26/21 20:38) Iohexol Injection (Omnipaque 350 Mg/Ml 1 (04/26/21 20:45) Received Contrast (Hold Metformin- Contr (04/26/21 20:45) Ns (Ivpb) (Sodium Chloride 0.9% Ivpb Bag (04/26/21 20:45) Promethazine Injection (Phenergan Injec (04/26/21 21:00) Diphenhydramine Injection (Benadryl Inje (04/26/21 21:00) Covid 19 Inhouse Test (04/26/21 20:50) Prochlorperazine Injection (Compazine In (04/26/21 23:00) Ct Angio Head/Neck (04/26/21 23:06) Iohexol Injection (Omnipaque 350 Mg/Ml 1 (04/26/21 23:30) Received Contrast (Hold Metformin- Contr (04/26/21 23:30) Ns (Ivpb) (Sodium Chloride 0.9% Ivpb Bag (04/26/21 23:30) Medications Given in ED Current Medications Medications Dose Ordered Sig/Roxana Route Start Time Stop Time Status Last Admin Dose Admin Acetaminophen 1,000 mg ONCE ONCE PO 04/26/21 20:45 04/26/21 20:46 DC 04/26/21 20:43 1,000 MG Aspirin 324 mg ONCE ONCE PO 04/26/21 17:15 04/26/21 17:16 DC 04/26/21 17:21 324 MG Diazepam 5 mg ONCE ONCE PO 04/26/21 17:45 04/26/21 17:46 DC 04/26/21 18:17 2.5 MG Diphenhydramine HCl 25 mg ONCE ONCE IVP 04/26/21 19:45 04/26/21 19:46 DC 04/26/21 19:57 25 MG Diphenhydramine HCl 25 mg ONCE ONCE IVP 04/26/21 21:00 04/26/21 21:01 DC 04/26/21 21:14 25 MG Iohexol 80 ml ONCE ONCE IV 04/26/21 23:30 04/26/21 23:31 DC 04/26/21 23:24 80 ML Iohexol 125 ml ONCE ONCE IV 04/26/21 20:45 04/26/21 20:46 DC 04/26/21 20:57 125 ML Ketorolac Tromethamine 15 mg ONCE ONCE IVP 04/26/21 20:30 04/26/21 20:31 DC 04/26/21 20:35 15 MG Meclizine HCl 25 mg ONCE ONCE PO 04/26/21 17:15 04/26/21 17:16 DC 04/26/21 17:27 25 MG Ondansetron HCl 4 mg ONCE ONCE IVP 04/26/21 17:15 04/26/21 17:16 DC 04/26/21 17:20 4 MG Ondansetron HCl 4 mg ONCE ONCE IVP 04/26/21 17:45 04/26/21 17:46 [place] 04/26/21 17:53 4 MG Prochlorperazine Edisylate 10 mg ONCE ONCE IV 04/26/21 23:00 04/26/21 23:01 DC 04/26/21 23:03 10 MG Promethazine HCl 12.5 mg ONCE ONCE IVP 04/26/21 19:45 04/26/21 19:46 [place] 04/26/21 19:58 12.5 MG Promethazine HCl 12.5 mg ONCE ONCE IVP 04/26/21 21:00 04/26/21 21:01 [place] 04/26/21 21:13 12.5 MG Sodium Chloride 100 ml ONCE ONCE IV 04/26/21 20:45 04/26/21 20:46 DC 04/26/21 20:57 100 ML Sodium Chloride 100 ml ONCE ONCE IV 04/26/21 23:30 04/26/21 23:31 DC 04/26/21 23:24 100 ML Vital Signs/I&O 04/26/21 20:43 Temp 39.1 04/27/21 00:00 Intake Total 1000 ml Balance 1000 ml Capillary Refill : Progress Note : Progress Note Patient symptoms are most consistent with an acute onset vertigo. His work-up has been negative however he does have intense vertigo whenever he is being moved. I will continue to treat symptoms and further assess disposition plan. Despite 2 doses of Zofran 2 doses of Phenergan 2 doses of Benadryl meclizine Toradol Tylenol patient continues to be symptomatic with vertigo and nausea and vomiting. Patient did spike a fever during his emergency department stay however there is no obvious bacterial etiology to start antibiotics. CT angiography of the head and neck were done which showed no large vessel occlusion. I still suspect this is more likely peripheral vertigo given how symptomatic he is especially if movements however central vertigo has not been completely ruled out and he will likely need an MRI. I spoke to Dr. Bennett and he agreed to accept patient for further observation and treatment. Patient transferred in stable condition. Departure Impression Primary Impression: Vertigo Additional Impressions: Intractable nausea and vomiting Transaminitis Leukocytosis Disposition: ADMITTED INPATIENT Condition: Stable Transfer Transfer Reason: Exceeds level of care Time Spoke to Accepting Phy: 23:[address] Bennett requested CTA prior to transfer, imaging negative, will transfer. Transfer Facility: [facility] Method of Transfer: EMS Departure-Patient Inst. Referrals: YARY VALDEZ MD (PCP/Family) Primary Care Physician JONNY DENTON DO Apr 26, 2021 18:47
[2021-04-26] MEDS ORDERED: NS IV 1000 ML 1,000 ML IV SCH (19:45)
[2021-04-26] MEDS ORDERED: diphenhydrAMINE 50 MG/ML INJ (BENADRYL) IVP ONE ×2 (19:45→21:00)
[2021-04-26] MEDS ORDERED: PROMETHAZINE INJ 25 MG/ML (PHENERGAN) AMP IVP ONE ×2 (19:45→21:00)
[2021-04-26] MEDS ORDERED: KETOROLAC 30 MG/ML VIAL IVP ONE (20:30)
[2021-04-26] MEDS ORDERED: IOHEXOL 350 MG/ML 150 ML (OMNIPAQUE 350) VIAL IV ONE (20:45)
[2021-04-26] MEDS ORDERED: NS 100 ML (IVPB) BAG IV ONE ×2 (20:45→23:30)
[2021-04-26] MEDS ORDERED: HOLD METFORMIN - RECEIVED CONTRAST 20 ML VIAL IV SCH ×2 (20:45→23:30)
[2021-04-26] MEDS ORDERED: ACETAMINOPHEN 500 MG TAB (TYLENOL) PO ONE (20:45)
--- NOTE | 2021-04-26 21:22 | Diagnostic Imaging Report ---
INDICATION: soa, elevated dimer CTA chest, abdomen and pelvis Thin axial sections through the chest, abdomen and pelvis are obtained following intravenous contrast bolus. Multiplanar MIP images were reconstructed and reviewed. All CT scans use one or more of the following dose optimizing techniques: automated exposure control, MA and/or KvP adjustment based on patient size and exam type or iterative reconstruction. INDICATION: Syncope, elevated D-dimer The lungs are clear. There are no effusions or pneumothoraces. There is large hiatal hernia. There are no pulmonary emboli. There is no right ventricular strain. There is no hilar or mediastinal lymphadenopathy. Thoracic aorta is unremarkable. Liver appears to have fatty infiltration. Gallbladder surgically absent. Portal vein is patent. Pancreas appears normal. Spleen is not enlarged. Adrenals appear normal. Kidneys appear normal. The celiac and superior mesenteric arteries are both patent. Renal arteries are both widely patent. IMPRESSION: Moderate-sized hiatal hernia. Hepatic steatosis. No acute abnormality seen in the chest. Dictated by: Dictated on workstation # [id number]
[2021-04-26 21:24] LABS: BILIRUBIN,URINE NEGATIVE (NEGATIVE); CLARITY,URINE CLEAR; COLOR,URINE YELLOW; GLUCOSE, URINE (UA) 3+ (NEGATIVE); KETONES,URINE NEGATIVE (NEGATIVE); LEUKOCYTE ESTERASE ,URINE NEGATIVE (NEGATIVE); NITRITE,URINE NEGATIVE (NEGATIVE); PROTEIN,URINE NEGATIVE (NEGATIVE)
[2021-04-26 21:28] LABS: BACTERIA,URINE NEGATIVE /HPF; WBC,URINE RARE /HPF
[2021-04-26] MEDS ORDERED: PROCHLORPERAZINE 10 MG/2ML INJ (COMPAZINE) IV ONE (23:00)
[2021-04-26] MEDS ORDERED: IOHEXOL 350 MG/ML 100 ML (OMNIPAQUE 350) VIAL IV ONE (23:30)
--- NOTE | 2021-04-27 00:09 | Diagnostic Imaging Report ---
Indication: Near syncope. TECHNIQUE: Contiguous noncontrast images were obtained from the skull base through the vertex. After intravenous contrast administration, helical CT angiography of the neck was performed. Source data was reformatted into 3D MIP projections. Delayed post contrast acquisition was also obtained. Auto Exposure Controls were utilized during the CT exam to meet ALARA standards for radiation dose reduction. There is no prior CTA head and neck for comparison. CTA neck findings: The aortic arch is patent and normal in caliber and appearance. Great vessel origins are patent and without stenosis. The common carotid arteries and carotid bifurcations and internal carotids and external carotids are patent and without stenosis. The vertebral arteries and both sides are patent with the left being dominant. There was no vertebral artery stenosis. CTA head findings: The distal vertebral arteries and basilar artery and posterior cerebral arteries appear patent. The distal internal carotid arteries and anterior cerebral arteries and middle cerebral arteries appear patent. The dural venous sinuses are patent. Delayed views show no enhancing intracranial lesions. IMPRESSION: Negative CTA of the head and neck. Dictated by: Dictated on workstation # [id number]
[2021-04-27 01:40] VITALS: BP 98/64
[2021-04-27] MEDS ORDERED: ONDANSETRON 4 MG/2 ML (SDV) Z0FRAN IV PRN (02:30)
[2021-04-27 05:00] VITALS: BP 94/60
[2021-04-27 05:42] LABS: BASOPHILS % (AUTO) 0 % (0-10); HEMATOCRIT 45 % (40-54); HEMOGLOBIN 15.2 g/dL (13.3-17.7); MEAN CORPUSCULAR HEMOGLOBIN 29 pg (25-34); MEAN CORPUSCULAR HGB CONC 34 g/dL (32-36); MEAN PLATELET VOLUME 10.6 fL (9.0-12.2)
[2021-04-27 05:44] LABS: EOSINOPHILS # (AUTO) 0.1 10^3/uL (0.0-0.3); EOSINOPHILS % (AUTO) 1 % (0-10); LYMPHOCYTES # (AUTO) 0.8 10^3/uL (1.0-4.0); LYMPHOCYTES % (AUTO) 13 % (12-44); MEAN CORPUSCULAR VOLUME 87 fL (80-99); MONOCYTES # (AUTO) 0.4 10^3/uL (0.0-1.0); MONOCYTES % (AUTO) 6 % (0-12); NEUTROPHILS # (AUTO) 5.3 10^3/uL (1.8-7.8); NEUTROPHILS % (AUTO) 80 % (42-75); PLATELET COUNT 95 10^3/uL (130-400); WHITE BLOOD COUNT 6.6 10^3/uL (4.3-11.0)
[2021-04-27] MEDS: LACTATED RINGERS 1,000 ML IV SCH ×4 (05:55→21:48)
[2021-04-27 06:00] LABS: POTASSIUM 3.9 MMOL/L (3.6-5.0)
[2021-04-27 06:01] LABS: CALCIUM 8.2 MG/DL (8.5-10.1)
[2021-04-27 06:06] LABS: CREATININE SERUM 1.06 MG/DL (0.60-1.30)
[2021-04-27 07:39] VITALS: BP 105/64
[2021-04-27] MEDS ORDERED: VANCOMYCIN INJECTION 0.1 MG in NS (IVPB) 250 ML IV SCH (10:30)
[2021-04-27] MEDS ORDERED: LACTATED RINGERS 1,000 ML IV SCH (10:45)
[2021-04-27] MEDS ORDERED: cefTRIAXone 2,000 MG in NS (IVPB) 50 ML IV SCH (11:00)
[2021-04-27] MEDS ORDERED: NS IV 1000 ML 3,000 ML IV NR (11:00)
--- NOTE | 2021-04-27 11:19 | History & Physical-Hospitalist ---
JALEEL RINCON 04/27/21 1119: History of Present Illness HPI/Chief Complaint The patient is a 55 YO male, with a history of DM type II, and glaucoma. The patient reports that yesterday he was [place] in a tree stand and experienced an episode of dizziness, lightheadedness, nausea and headache. He was with his who called 911. He was brought to the [facility], and reports not remember getting brought to the ER. He reports having an episodes of vomiting, and diarrhea associated with this episode. He has never experienced anything like this in the past. The patient's reports that he had a fever of 102 F at the [facility]. The patient reports being sensitive to light. He also reports being sore "all over". Currently he reports having some lightheadedness while laying in bed, but does not have any dizziness. Date Seen 04/27/21 Attending Physician Cornel Bennett MD PCP Leandra Dunaway MD Referring Physician Date of Admission Apr 27, 2021 at 01:40 Home Medications & Allergies Home Medications Reviewed patient Home Medication Reconciliation performed by pharmacy medication reconciliations auto transmission technician and/or nursing. Patients Allergies have been reviewed. Allergies Allergies Coded Allergies cefazolin (Verified Allergy, Unknown, vomiting, 08/19/19) tolerates rocephin droperidol (Verified Allergy, Unknown, 08/19/19) morphine (Verified Allergy, Unknown, 08/19/19) hypotension nalbuphine (Verified Allergy, Unknown, 08/19/19) Past Egdbtik-Xdaxin-Sqhomg Hx Patient Social History Tobacco Use?: No Use of E-Cig and/or Vaping dev: No Substance use?: No Alcohol Use?: No Pt feels they are or have been: No Immunizations Up To Date Date of Influenza Vaccine: Feb 23, 2019 Tetanus Booster (TDap): Unknown Hepatitis A: Yes Hepatitis B: Yes Date of Pneumonia Vaccine: Mar 26, 2019 Current Status Advance Directives: No Communicates: Verbally Primary Language: Greek Preferred Spoken Language: Greek Is interpretation needed?: No Implanted or Applied Medical D: None Past Medical History Surgeries: Orthopedic Hypertension Diabetes, Insulin dep Review of Systems Constitutional: dizziness (yesterday), fever, other (lightheadedness ) EENTM: other (photophobia ); No blurred vision, No double vision Respiratory: No cough, No short of breath Cardiovascular: No chest pain, No palpitations Gastrointestinal: No jaundice; nausea Musculoskeletal: muscle pain (reports as "all over") Skin: No dryness, No rash Psychiatric/Neurological: Denies Depressed; Headache; Denies Tremors Physical Exam Physical Exam Vital Signs Vital Signs - First Documented 04/26/21 04/27/21 20:43 00:35 Temp 39.1 Pulse 92 Resp 16 B/P (MAP) 114/60 Pulse Ox 93 O2 Delivery Room Air Capillary Refill : Height, Weight, BMI Height: '" Weight: lbs. oz. kg; 28.00 BMI Method: General Appearance: WD/WN, Mild Distress Eyes: Bilateral Eye PERRL, Bilateral Eye EOMI, Bilateral Eye Photophobia HEENT: Moist Mucous Membranes, Photophobia Neck: Full Range of Motion (did mention some soreness with moving his neck) Respiratory: Chest Non Tender, Lungs Clear, Normal Breath Sounds, No Accessory Muscle Use, No Respiratory Distress Cardiovascular: Regular Rate, Rhythm, No Murmur, Normal Peripheral Pulses Gastrointestinal: No Organomegaly, No Pulsatile Mass, Soft, Tenderness (mild and diffuse ) Rectal: Deferred Neurologic/Psychiatric: Alert, Oriented x3, No Motor/Sensory Deficits, Normal Mood/Affect Skin: Normal Color, Warm/Dry Results Results/Procedures Labs Laboratory Tests 04/26/21 17:07 04/26/21 17:43 04/27/21 05:25 Patient resulted labs reviewed. Assessment/Plan Assessment and Plan Meningitis viral or bacterial Cerebrovascular accident Tick borne disease Benign paroxysmal vertigo Hypoglycemia DM Type II Glaucoma Fever, headache, nausea, body aches, diarrhea, vomiting Perform a lumbar puncture, and blood cultures. Obtain Tick borne disease panel. Start on Dexamethasone, then vancomycin, ceftriaxone, ampicillin, and acyclovir. Vertigo Obtain an MRI of the head DM Type II Glaucoma Continue home meds. LOW MCKINLEY MD 04/27/21 2949: History of Present Illness Source: patient Exam Limitations: no limitations Time Seen by a Provider: 10:30 Past Zckjssc-Bajhzc-Fdorew Hx Past Medical History Diabetes, Insulin dep Family Medical History No Pertinent Family Hx Physical Exam Physical Exam General Appearance: No Apparent Distress, WD/WN, Anxious Eyes: Bilateral Eye PERRL, Bilateral Eye EOMI, Bilateral Eye Photophobia HEENT: Pharynx Normal, Photophobia Neck: Full Range of Motion (did mention some soreness with moving his neck), Supple Respiratory: Lungs Clear, Normal Breath Sounds, No Respiratory Distress Cardiovascular: Regular Rate, Rhythm, No Edema, No Murmur, Normal Peripheral Pulses Gastrointestinal: Normal Bowel Sounds, Non Tender, Soft Extremity: Normal Inspection, Non Tender, No Pedal Edema Neurologic/Psychiatric: Alert, Oriented x3, No Motor/Sensory Deficits Skin: Normal Color, Warm/Dry Results Results/Procedures Imaging: Reviewed Imaging Report Assessment/Plan Admission Diagnosis Sepsis Admission Status: Inpatient Order (span 2 midnights) Reason for Inpatient Admission: Sepsis of unknown origin Assessment and Plan 55 year old male with insulin-dependent diabetes who presented with vertigo. Having fevers overnight. Infectious workup initiated. Photophobia present. Lumbar puncture and MRI ordered. Started on antibiotics. Await results. Diagnosis/Problems Diagnosis/Problems (1) Sepsis Status: Acute Qualifiers: Sepsis type: sepsis due to unspecified organism Sepsis acute organ dysfunction status: without acute organ dysfunction Qualified Codes: A41.9 - Sepsis, unspecified organism (2) Vertigo Status: Acute (3) Insulin dependent diabetes mellitus Status: Chronic Supervisory-Addendum Brief Verification & Attestation Participated in pt care: history, MDM, physical Personally performed: exam, history, MDM, supervision of care Care discussed with: Medical Student Procedures: n/a Results interpretation: Verified all documentation A medical student performed and documented this service in my presence. I reviewed and verified all information documented by the medical student and made modifications to such information, when appropriate. I personally performed the physical exam and medical decision making. JALEEL RINCON Apr 27, 2021 11:19 LOW MCKINLEY MD Apr 27, 2021 18:29
[2021-04-27] MEDS ORDERED: VANCOMYCIN 1500 MG/NS 500 ML IVPB IV SCH ×2 (11:30)
[2021-04-27 11:35] VITALS: BP 116/63
[2021-04-27] MEDS ORDERED: AMPICILLIN FOR IV USE 2,000 MG in WATER (STERILE) FOR INJECTION 14.8 ML IV SCH (12:00)
[2021-04-27] MEDS: ACYCLOVIR INJECTION 800 MG in NS (IVPB) 250 ML IV SCH ×3 (12:52→21:48)
[2021-04-27 13:14] LABS: CSF GLUCOSE 74 MG/DL (50-80)
[2021-04-27 13:20] LABS: CSF TOTAL PROTEIN 30 MG/DL (15-40)
[2021-04-27 13:38] LABS: APPEARANCE,CSF CLEAR; COLOR,CSF COLORLESS; RED BLOOD CELL,CSF 1 CELLS (0-0); WHITE BLOOD CELL,CSF 1 CELLS (0-5)
[2021-04-27 13:39] LABS: CSF TUBE NUMBER 4
[2021-04-27] MEDS ORDERED: FURO40TA4 PO (14:38)
[2021-04-27] MEDS ORDERED: EMPA1TAB17 PO (14:38)
[2021-04-27] MEDS ORDERED: INSU300I SC (14:38)
[2021-04-27] MEDS ORDERED: INSU100I23 SQ (14:38)
[2021-04-27] MEDS ORDERED: ATOR40TA70 PO (14:38)
[2021-04-27] MEDS ORDERED: SEMA1PEN3 IJ (14:38)
[2021-04-27] MEDS ORDERED: ALBU18HF2 INH (14:38)
--- NOTE | 2021-04-27 14:39 | Anesthesia-Procedure Note ---
Procedures/Interventions Procedure Start/Stop/Diagnosis Date of Procedure: Apr 27, 2021 Start Time: 12:25 Referring Physician: Dr Monet Preprocedural Diagnosis: Headache, N/V, "Dizziness and Lightheaded" Brief History Called by Dr Monet for a Lumbar Puncture to rule out meningitis. History obtained from patient and chart reviewed. Plt Count of 95 was noted and discussed the slightly increased risk of bleeding/epidural hematoma due to this low platelet count. All questions answered and consent signed. Stop Time: 12:40 Postprocedural Diagnosis: Same Lumbar Puncture Discussed Risk,Benefits: Yes Patient Consents: Yes Position: L3-4, Right Sterile Technique: Yes (ChloraPrep and sterile drape in normal sterile fashion) Opening Pressure: 21 Fluid Color: Clear Spinal Needle Used: 22g Renee 3 1/2 inch Procedure Notes See above for procedure details. 3 ml of 1% lidocaine used for local anesthesia at the L3-4 level. Transient paresthesia noted on the right alleviated immediately with needle withdrawal. + clear CSF after needle redirect x 2. Opening pressure of 21 noted and ~2 ml CSF x 4 vials sent to lab per Dr Monet's order. Sterile bandage applied. Pt tolerated the procedure well. They symptoms of a PDPH were described to the patient, as well as treatment strategies up to and including an epidural blood patch. He will contact us with any questions or concerns. JENNY CERVANTES DO Apr 27, 2021 14:39
[2021-04-27] MEDS ORDERED: ASCO500T17 PO (14:40)
[2021-04-27] MEDS ORDERED: NS IV 1000 ML 3,000 ML IV PRN (14:45)
[2021-04-27] MEDS ORDERED: ACETAMINOPHEN 325 MG TABLET PO PRN (15:00)
[2021-04-27] MEDS ORDERED: GADOTERATE 0.5 MMOL/ML (CLARISCAN) 20 ML VIAL IV ONE (15:30)
[2021-04-27 15:56] VITALS: BP 118/64
--- NOTE | 2021-04-27 16:05 | Diagnostic Imaging Report ---
PROCEDURE: MR imaging of the brain with and without contrast. TECHNIQUE: Multiplanar, multisequence MR imaging of the brain was performed with and without contrast. INDICATION: Dizziness and weakness. COMPARISON: CTA head and neck on 04/26/2021. FINDINGS: No acute ischemia, mass, or hemorrhage. No abnormal enhancement. The ventricles, cortical sulci, and basilar cisterns are symmetric and unremarkable. The sellar and suprasellar regions have a normal appearance. The brainstem and posterior fossa are unremarkable. The paranasal sinuses and mastoid air cells demonstrate normal signal characteristics. The globes and orbits are symmetric and unremarkable. The scalp and calvarium have a normal appearance. IMPRESSION: 1. No acute ischemia, mass, or hemorrhage. No abnormal enhancement or focal signal abnormalities. Dictated by: Dictated on workstation # [id number]
[2021-04-27] MEDS ORDERED: ENOXAPARIN 40 MG/0.4 ML (LOVENOX) SYR SC SCH (18:30)
[2021-04-27] MEDS ORDERED: MECLIZINE 25 MG (ANTIVERT) TAB PO PRN (18:30)
[2021-04-27] MEDS ORDERED: polyethylene glycoL POWDER 17 GM (MIRALAX) PACK PO PRN (18:30)
[2021-04-27] MEDS ORDERED: diphenhydrAMINE 25 MG TAB (BENADRYL) PO PRN (18:30)
[2021-04-27] MEDS ORDERED: ANTACID SUSP 30 ML UDC (MYLANTA) PO PRN (18:30)
[2021-04-27] MEDS ORDERED: MELATONIN 3 MG TABLET PO PRN (18:30)
[2021-04-27 19:49] VITALS: BP 120/69
[2021-04-27] MEDS: TIMOLOL MALEATE 0.5% 5 ML (TIMOPTIC) BTL OU SCH (20:29)
[2021-04-27] MEDS: inSUlin ASPART (NovoLOG) 1 UNIT/0.01 ML (CHARGE PER UNIT) SC SCH (20:30)
[2021-04-28] VITALS: BP 108/63
[2021-04-28 04:25] VITALS: BP 107/65
[2021-04-28] MEDS: LACTATED RINGERS 1,000 ML IV SCH (06:01)
[2021-04-28] MEDS: ACYCLOVIR INJECTION 800 MG in NS (IVPB) 250 ML IV SCH (06:01)
[2021-04-28 06:30] LABS: BASOPHILS % (AUTO) 0 % (0-10)
[2021-04-28 06:32] LABS: EOSINOPHILS % (AUTO) 1 % (0-10); HEMATOCRIT 40 % (40-54); HEMOGLOBIN 13.8 g/dL (13.3-17.7); LYMPHOCYTES # (AUTO) 1.1 10^3/uL (1.0-4.0); LYMPHOCYTES % (AUTO) 17 % (12-44); MEAN CORPUSCULAR HEMOGLOBIN 29 pg (25-34); MEAN CORPUSCULAR HGB CONC 35 g/dL (32-36); MEAN CORPUSCULAR VOLUME 85 fL (80-99); MEAN PLATELET VOLUME 10.7 fL (9.0-12.2); MONOCYTES # (AUTO) 0.5 10^3/uL (0.0-1.0); MONOCYTES % (AUTO) 7 % (0-12); NEUTROPHILS # (AUTO) 4.8 10^3/uL (1.8-7.8); NEUTROPHILS % (AUTO) 74 % (42-75); PLATELET COUNT 90 10^3/uL (130-400); WHITE BLOOD COUNT 6.5 10^3/uL (4.3-11.0)
[2021-04-28 06:55] LABS: ALBUMIN 3.3 GM/DL (3.2-4.5); POTASSIUM 4.1 MMOL/L (3.6-5.0)
[2021-04-28 06:56] LABS: CALCIUM 8.2 MG/DL (8.5-10.1)
[2021-04-28 06:57] LABS: TOTAL PROTEIN 5.7 GM/DL (6.4-8.2)
[2021-04-28 06:59] LABS: BILIRUBIN,TOTAL 0.7 MG/DL (0.1-1.0)
[2021-04-28 07:01] LABS: CREATININE SERUM 0.71 MG/DL (0.60-1.30)
[2021-04-28] MEDS: inSUlin ASPART (NovoLOG) 1 UNIT/0.01 ML (CHARGE PER UNIT) SC SCH ×4 (07:26→11:44)
[2021-04-28 07:58] VITALS: BP 103/61
[2021-04-28] MEDS ORDERED: DOXYCYCLINE 100 MG (VIBRAMYCIN) TABLET PO ONE (08:00)
--- NOTE | 2021-04-28 08:02 | Progress Note - Hospitalist ---
Subjective HPI/CC On Admission Date Seen by Provider: Apr 28, 2021 Time Seen by Provider: 08:20 The patient was in bed comfortably this morning. He reports that he was up and out of bed 3x last night, and did not experience dizziness or lightheadedness. He currently has no dizziness or lightheadedness. He does mention that he is still sore and achy all over. He has not been having any nausea or vomiting. He has not had a BM while at the hospital. His appetite is fair. Yesterday he had some episodes of being clammy/ sweating, and mentions his last episode of being clammy/ sweating his blood sugar was 305, and was given insulin. He still reports having a dull headache, but did not experience worsening headache after this lumbar puncture. He reports improvement with his light sensitivity. He denies any changes to his urination compared to his baseline. Review of Systems General: No Chills, No Night Sweats HEENT: Head Aches (dull headache ); No Visual Changes Pulmonary: No Dyspnea; Cough (minor cough) Cardiovascular: No: Chest Pain, Palpitations Gastrointestinal: No: Nausea, Vomiting Genitourinary: No Dysuria, No Frequency (no more than his usual frequency levels) Musculoskeletal: neck pain (neck soreness is unchanged) Neurological: No: Weakness, Numbness Focused Exam Lactate Level 04/27/21 11:15: Lactic Acid Level 0.87 Objective Exam Vital Signs Vital Signs Date Time Temp Pulse Resp B/P (MAP) Pulse Ox O2 Delivery O2 Flow Rate FiO2 04/28/21 07:58 35.9 66 20 103/61 (75) 96 Room Air Capillary Refill : General Appearance: No Apparent Distress, WD/WN HEENT: PERRL/EOMI, Moist Mucous Membranes Neck: Full Range of Motion (soreness with cervical movement), Normal Inspection, Supple Respiratory: Chest Non Tender, Lungs Clear, Normal Breath Sounds, No Accessory Muscle Use, No Respiratory Distress Cardiovascular: Regular Rate, Rhythm, No Murmur, Normal Peripheral Pulses Gastrointestinal: No Organomegaly, No Pulsatile Mass, Soft, Tenderness (mild epigastric tenderness on palpation ) Rectal: Deferred Extremity: No Calf Tenderness, No Pedal Edema Neurologic/Psychiatric: Alert, Oriented x3, No Motor/Sensory Deficits, Normal Mood/Affect Skin: Normal Color, Warm/Dry Lymphatic: No Adenopathy (cervical ) Results/Procedures Lab Laboratory Tests 04/28/21 06:01 Patient resulted labs reviewed. Imaging: Reviewed Imaging Report Assessment/Plan Assessment and Plan Assess & Plan/Chief Complaint Meningitis viral or bacterial Cerebrovascular accident Tick borne disease Benign paroxysmal vertigo Hypoglycemia DM Type II Glaucoma Fever, headache, nausea, body aches, diarrhea, vomiting Perform a lumbar puncture, and blood cultures. Obtain Tick borne disease panel. Start on Dexamethasone, then vancomycin, ceftriaxone, ampicillin, and acyclovir. Vertigo Obtain an MRI of the head DM Type II Glaucoma Continue home meds. JALEEL RINCON Apr 28, 2021 08:02
[2021-04-28] MEDS: TIMOLOL MALEATE 0.5% 5 ML (TIMOPTIC) BTL OU SCH (08:34)
[2021-04-28] MEDS ORDERED: lisINopril 5 MG (PRINIVIL) TABLET PO SCH (09:00)
[2021-04-28] MEDS ORDERED: cefTRIAXone 2,000 MG in NS (IVPB) 50 ML IV SCH (11:00)
[2021-04-28] MEDS ORDERED: DOXY100T2 PO (11:12)
[2021-04-28] MEDS ORDERED: CEFD300C3 PO (11:12)
--- NOTE | 2021-04-28 11:31 | Discharge Summary ---
Discharge Summary Hospital Course Was the Problem List Reviewed?: Yes Problems/Dx: (1) Sepsis Status: Resolved Qualifiers: Qualified Codes: A41.9 - Sepsis, unspecified organism (2) Vertigo Status: Resolved (3) Insulin dependent diabetes mellitus Status: Chronic (4) ELBERT (acute kidney injury) Status: Resolved (5) Viral sepsis Status: Acute (6) Viral syndrome Status: Acute Hospital Course Date of Admission: Apr 27, 2021 at 10:43 Admission Diagnosis: Vertigo Family Physician/Provider: Yary Valdez MD Date of Discharge: 04/28/21 Discharge Diagnosis: Viral sepsis due to viral syndrome Hospital Course: Ashutosh Malcolm is a 55 year old male with insulin dependent diabetes who presented with vertigo. He also had nausea, vomiting, body aches, and fevers. He was negative for COVID and flu. He had a negative CT Head on arrival. He had a negative CT Chest/Abdomen. His chest xray was normal. His UA was normal. His blood cultures had no growth. He had some photophobia and thus underwent a lumbar puncture but the labs were not consistent with meningitis. His CSF culture preliminarily had no growth at the time of discharge. His symptoms improved. He had a tick panel pending at the time of discharge. He was presumably suffering from viral sepsis due to a viral syndrome. With his impr ovement while on antibiotics and pending tick panel, he was discharged on Omnicef and Doxycycline. He was discharged home in stable condition. He should follow up with his PCP in about a week. Labs and Pending Lab Test: Laboratory Tests 04/27/21 12:38: CSF Tube Number 4, CSF Appearance CLEAR, CSF Color COLORLESS, CSF WBC 1, CSF RBC 1H, CSF Lymphocytes , CSF Mononuclear WBCs , CSF Polynuclear WBCs , CSF Glucose 74, CSF Total Protein 30 04/27/21 20:00: Glucometer 305H 04/28/21 06:01: White Blood Count 6.5, Red Blood Count 4.72, Hemoglobin 13.8, Hematocrit 40, Mean Corpuscular Volume 85, Mean Corpuscular Hemoglobin 29, Mean Corpuscular Hemoglobin Concent 35, Red Cell Distribution Width 12.8, Platelet Count 90L, Mean Platelet Volume 10.7, Immature Granulocyte % (Auto) 1, Neutrophils (%) (A uto) 74, Lymphocytes (%) (Auto) 17, Monocytes (%) (Auto) 7, Eosinophils (%) (Auto) 1, Basophils (%) (Auto) 0, Neutrophils # (Auto) 4.8, Lymphocytes # (Auto) 1.1, Monocytes # (Auto) 0.5, Eosinophils # (Auto) 0.0, Basophils # (Auto) 0.0, Immature Granulocyte # (Auto) 0.0, Percent Immature Platelet Fraction 3.8, Sodium Level 137, Potassium Level 4.1, Chloride Level 107, Carbon Dioxide Level 19L, Anion Gap 11, Blood Urea Nitrogen 14, Creatinine 0.71, Estimat Glomerular Filtration Rate 114, BUN/Creatinine Ratio 20, Glucose Level 135H, Calcium Level 8.2L, Corrected Calcium 8.8, Total Bilirubin 0.7, Aspartate Amino Transf (AST/SGOT) 28, Alanine Aminotransferase (ALT/SGPT) 45, Alkaline Phosphatase 21L, Total Protein 5.7L, Albumin 3.3 04/28/21 09:59: Glucometer 183H Microbiology 04/27/21 Gram Stain - Final, Resulted 04/27/21 CSF Culture - Preliminary, Resulted No growth Home Meds Active Cefdinir 300 Mg Capsule 300 Mg PO BID 10 Days Doxycycline Hyclate 100 Mg Tablet 100 Mg PO BID@07,17 10 Days Reported Vitamin C (Ascorbic Acid) 500 Mg Tablet 500 Mg PO DAILY Humalog Kwikpen (Insulin Lispro) 100 Unit/1 Ml Insuln.pen Units SQ AC USES PER SLIDING SCALE Touyudeklao Solostar (Insulin Glargine,Hum.rec.anlog) 300 Unit/1 Ml Insuln.pen 34 Units SC HS Synjardy Xr 5-1,000 mg Tablet (Empagliflozin/Metformin HCl) 1 Each Tab.bp.24h 2 Ea PO DAILY Ozempic (Semaglutide) 1 Mg/0.75 Ml Pen.injctr 1 Mg IJ SUN Furosemide 40 Mg Tablet 40 Mg PO DAILY PRN Ventolin Hfa (Albuterol Sulfate) 18 Gm Hfa.aer.ad 2 Puff INH Q6H PRN Atorvastatin Calcium 40 Mg Tablet 40 Mg PO DAILY Ibuprofen 200 Mg Tablet 800 Mg PO Q8H PRN Tylenol Extra Strength (Acetaminophen) 500 Mg Tablet 1,000 Mg PO Q8H PRN Timolol Maleate 0.5% (Timolol Maleate) 5 Ml Drops 1 Drop OU BID Lisinopril 5 Mg Tablet 5 Mg PO DAILY Assessment/Pt Instructions Take medications as prescribed. Complete your course of antibiotics even if you are feeling better. Follow up with your PCP. Return with worsening fevers, dizziness, vomiting, or if you feel like you are getting worse. Discharge Planning: <30 minutes discharge planning Discharge Instructions Discharge Diet: No Restrictions Activity as Tolerated: Yes Discharge Physical Examination Vital Signs Vital Signs Date Time Temp Pulse Resp B/P (MAP) Pulse Ox O2 Delivery O2 Flow Rate FiO2 04/28/21 08:00 Room Air 04/28/21 07:58 35.9 66 20 103/61 (75) 96 General Appearance: No Apparent Distress, WD/WN Respiratory: Lungs Clear, Normal Breath Sounds, No Respiratory Distress Cardiovascular: Regular Rate, Rhythm, No Edema, No Murmur Gastrointestinal: Normal Bowel Sounds, Non Tender, Soft Extremity: Normal Inspection, Non Tender, No Pedal Edema Skin: Normal Color, Warm/Dry Neurologic/Psychiatric: Alert, Oriented x3, No Motor/Sensory Deficits, Normal Mood/Affect Allergies: Coded Allergies: cefazolin (Verified Allergy, Unknown, vomiting, 08/19/19) tolerates rocephin droperidol (Verified Allergy, Unknown, 08/19/19) morphine (Verified Allergy, Unknown, 08/19/19) hypotension nalbuphine (Verified Allergy, Unknown, 08/19/19) Copy Copies To 1: YARY VALDEZ MD Discharge Summary Date of Admission Apr 27, 2021 at 10:43 Date of Discharge Discharge Date: Apr 28, 2021 Discharge Time: 11:24 Admission Diagnosis Sepsis Discharge Diagnosis Viral sepsis (1) Sepsis Status: Resolved Qualifiers: Qualified Codes: A41.9 - Sepsis, unspecified organism (2) Vertigo Status: Resolved (3) Insulin dependent diabetes mellitus Status: Chronic (4) Viral sepsis Status: Acute (5) ELBERT (acute kidney injury) Status: Resolved (6) Viral syndrome Status: Acute LOW MCKINLEY MD Apr 28, 2021 11:30
[2021-04-28 11:35] VITALS: BP 144/77
[2021-04-28] MEDS ORDERED: DOXYCYCLINE 100 MG (VIBRAMYCIN) TABLET PO SCH (17:00)
== END 2021-04-28 12:30 | disposition home or self-care (01) | DRG 872 ==
LOC: EDUNIT# 17:03 → ER FS 17:04 → 4TH 04-27 01:40 → OBSVTOIN 04-27 10:43
PROVIDERS: ADMIT Internal Medicine; ATTEND Internal Medicine
PROC: 009U3ZX Drainage of Spinal Canal, Percutaneous Approach, Diagnostic (ICD-10-PCS; principal; 2021-04-28)
DX: A41.89 Other specified sepsis (principal); N17.9 Acute kidney failure, unspecified; B34.9 Viral infection, unspecified; R42 Dizziness and giddiness; E11.649 Type 2 diabetes mellitus with hypoglycemia without coma; H40.9 Unspecified glaucoma; H81.10 Benign paroxysmal vertigo, unspecified ear; Z79.4 Long term (current) use of insulin; Z79.899 Other long term (current) drug therapy; I10 Essential (primary) hypertension; D72.829 Elevated white blood cell count, unspecified; Z20.822 Contact with and (suspected) exposure to COVID-19
CPT/HCPCS: 36415; 70450; 70496; 70498; 70553; 71045; 71275; 74177; 80048; 80053; 81000; 82945; 82947; 83605; 83690; 83880; 84145; 84157; 84443; 84484; 85007; 85025; 85027; 85379; 85610; 85730; 86618; 86666; 86668; 86757; 87040; 87070; 87205; 87254; 87636; 87804; 89051; 93005; G0378

== ENCOUNTER → 2023-04-04 | Outpatient (CLI) | payer OTHER ==
[~2023-04-04] MED LIST changes: +ALBU18HF2 INH; +ASCO500T17 PO; +ATOR40TA70 PO; +CEFD300C3 PO; +DOXY100T2 PO; +EMPA1TAB17 PO; +FURO40TA4 PO; +INSU100I23 SQ; +INSU300I SC; +LEVO750T PO; -LEVO750T39 PO; +SEMA1PEN3 IJ; +TIMO5DRO16 OU; -TIMO5DRO27; +TIMO5DRO39; -TIMO5DRO5 OU
--- NOTE | 2023-04-04 13:05 | Diagnostic Imaging Report ---
INDICATION: Cough EXAMINATION: Two-view chest 04/04/2023 COMPARISON: 04/26/2021 FINDINGS: There is atelectasis at the lung bases with no infiltrates or effusions. No pneumothorax. No effusions. There is a likely small hiatal hernia. Heart and pulmonary vasculature unremarkable. IMPRESSION: 1. Bibasal atelectasis. 2. Small hiatal hernia. Dictated by: Dictated on workstation # [id number]
== END ==
LOC: RAD FS 09:34
PROVIDERS: ATTEND Family Medicine
DX: J98.11 Atelectasis (principal); K44.9 Diaphragmatic hernia without obstruction or gangrene
CPT/HCPCS: 71046